=== PATIENT | male | born 1955 | race Two or more races ===

== ENCOUNTER 2024-12-03 17:54 | Inpatient (IN) | payer OTHER, MEDICAID ==
[~2024-12-03] VITALS: Ht 182.9 cm; Wt 102.0 kg
[~2024-12-03 17:54] MED LIST: ALBU108A5 INH; ASPI-325 PO; BACL10TA PO; DICL1GEL73 TOP; GABA-1250 PO; LEVO50TA7 PO; LORA-483 PO; OMEP-448 PO; SODI650T PO
--- NOTE | 2024-12-03 19:13 | ED.PDOC ---
Musculoskeletal HPI Comments LISA: R foot wound HPI: Poor Historian. 68-year-old male presents to emergency department for evaluation of right foot wound. Patient is diabetic. Patient is status post shaving of a callus proximally a week ago. Today he started developing some pain in the area where he received a shaving of his callus with tenderness to palpation and swelling and redness. Denies any discharge. Denies any other acute symptoms. Patient has history of multiple problems with this foot in the past. Past Medical History: Diabetes, hypertension, hyperlipidemia, neuropathy. Past Surgical History: Fused spine, gallbladder, right foot toe amputation. REVIEW OF SYSTEMS: CONSTITUTIONAL: Denies acute: fever, diaphoresis, chills, generalized weakness. HEAD: Denies acute: headache, photophobia Eyes: Denies acute: Double vision, vision loss, eye pain, eye discharge. EARS: Denies acute: tinnitus, hearing loss, ear discharge, ear pain, THROAT: Denies acute: sore throat, swelling, difficulty swallowing , pain with swallowing, change in voice. NECK: Denies acute: neck pain, neck swelling, stiff neck. HEART: Denies acute : chest pain, palpitations, LUNGS: Denies acute: SOB, wheezing, cough, hemoptysis ABDOMEN: Denies acute: abdominal pain, Nausea, Vomiting, diarrhea, melena , hematemesis, hematochezia SKIN: Denies acute: rash, , , itchiness. EXTREMITIES: Denies acute: calf pain, numbness, tingling, weakness, Denies acute: Low back pain. Neuro: Denies acute: focal neurological deficit, motor or sensory focal neurological deficit, tremors, seizure like activity, confusion, dizziness, change in mental status, loss of bowel or bladder function, cauda equina like symptoms. : Denies acute: dysuria, hematuria, flank pain, increase in urinary frequency. PSYCH: Denies acute: hallucination, suicidal ideation, homicidal ideation. PHYSICAL EXAM: General: ----mild----acute distress, awake and alert. Head: normocephalic, atraumatic. Neck: supple, trachea is midline, no swelling. Throat: Normal phonation. Eyes:, no erythema, no purulent discharge, no proptosis, no icterus. Heart: regular rate, regular rhythm, no significant murmur appreciated. Lungs: no apparent respiratory distress, Able to speak in full sentences. No wheezing, no rhonchi, no crackles. No stridors Clear to auscultation bilaterally. Abdomen: non tender to palpation, non distended, soft, no guarding, no rebound, + bowel sounds. Neuro: Awake, Alert, oriented to name, self, situation, follows commands GCS=15. Speech is normal. Skin: no petechia, no purpura, no cyanosis, non-pale, not jaundice. Lower extremities: --no - Pitting edema no deformity, , no calf TTP. Evaluation of the right foot area of complaint: Patient has a right foot lateral aspect wound that is tender to palpation. This is the area that they shaved off a callus proximally a week ago. Patient has some minimal erythema around it. Some generalized tenderness to palpation in the area. Makes eye contact. moves all four extremities. Face: no apparent facial droop. Ambulating in the ED independently. Pedal pulses are palpable. ED COURSE: Chief Complaint: Wound Check Time Seen by MD: 17:59 Reviewed Notes: Nurses Notes, Allergies Allergies: Coded Allergies: Atropine (Verified Allergy, Unknown, 12/03/24) Morphine (Verified Allergy, Unknown, 12/03/24) Home Meds Reported Medications Loratadine (CLARITIN TABLET) 10 Mg Tb, 1 TAB PO DAILY for 30 Days, #30 12/04/24 Levothyroxine Sodium (Levothyroxine Sodium) 50 Mcg Tab, 1 TAB PO DAILY for 90 Days, #90 12/04/24 Omeprazole (Omeprazole Dr) 40 Mg Cap, 1 CAP PO DAILY for 90 Days, #90 12/04/24 Albuterol Sulfate (Albuterol Sulfate Hfa) 108 Mcg/Act Aer, 2 PUFF INH Q4HR PRN for 33 Days, #17 12/04/24 Aspirin (Aspirin Low Dose) 81 Mg Tab, 1 TAB PO DAILY for 90 Days, #90 12/04/24 Sodium Bicarbonate (Sodium Bicarbonate) 650 Mg Tab, 2 PO BID for 30 Days, #120 12/04/24 Diclofenac Sodium (Topical) (Diclofenac Sodium) 1 % Gel, 2 GRAMS TOP QID for 25 Days, #200 12/04/24 Baclofen (Baclofen) 10 Mg Tab, 1 TAB PO Q12HR PRN for 30 Days, #60 12/04/24 Amlodipine Besylate (Amlodipine Besylate) 5 Mg Tab, 5 MG PO DAILY for 30 Days, MG 12/04/24 Atorvastatin Calcium (ATORVASTATIN CALCIUM) 20 Mg Tab, 1 TAB PO DAILY, #30 TAB 5 Refills 12/04/24 Lisinopril (Lisinopril) 5 Mg Tab, 5 MG PO DAILY for 30 Days, MG 12/04/24 Gabapentin (Gabapentin) 300 Mg Cap, 1 TAB PO TID for 30 Days, #90 12/04/24 Insulin Glargine (Lantus Solostar) 100 Unit/Ml Inj, 35 UNITS SC HS 12/04/24 Carvedilol (Carvedilol) 12.5 Mg Tab, 1 TAB PO BID 12/04/24 Hydrocodone-Acetaminophen (Hydrocodone/Acetaminophen 7.5-325 mg) 1 Tab Tab, 1 TAB PO Q8H 12/04/24 Folic Acid (Folic Acid) 1 Mg Tab, 1 MG PO DAILY for 30 Days, MG 12/04/24 Information Source: Patient Mode of Arrival: Ambulatory Location: Right Was a procedure done? Was a procedure done?: No Differential Diagnosis EXT Differential Diagnosis: Other (Ddx include but not limited to cellulitis, abscess, lymphadenitis, lymphangitis, trauma, DVT, venous insufficiency, trauma, r/o septic joint., r/o associated osteomylitis, flexor tensenovitis, deep tissue infection, neoplasm, necrotizing fascitits, hematoma, gout.) X-Ray, Labs, Meds, VS Vital Signs Date Time Temp Pulse Resp B/P (MAP) Pulse Ox O2 Delivery O2 Flow Rate FiO2 12/03/24 18:44 98.3 81 20 153/77 (102) 95 98.3 Lab Test 12/03/24 20:25 Range/Units White Blood Count 6.1 4.4-10.8 10^3/uL Red Blood Count 4.33 L 4.5-5.90 10^6/uL Hemoglobin 12.7 L 13.5-17.5 g/dL Hematocrit 38.2 L 41.0-53.0 % Mean Corpuscular Volume 88.1 80.0-100.0 fL Mean Corpuscular Hemoglobin 29.3 28.0-32.0 pg Mean Corpuscular Hemoglobin Concent 33.2 32.0-36.0 g/dL Red Cell Distribution Width 14.2 11.8-14.3 % Platelet Count 179 140-450 10^3/uL Mean Platelet Volume 7.7 6.9-10.8 fL Neutrophils (%) (Auto) 77.2 37.0-80.0 % Lymphocytes (%) (Auto) 12.6 10.0-50.0 % Monocytes (%) (Auto) 7.5 0.0-12.0 % Eosinophils (%) (Auto) 1.9 0.0-7.0 % Basophils (%) (Auto) 0.8 0.0-2.0 % Neutrophils # (Auto) 4.7 1.6-8.6 10 ^3/uL Lymphocytes # (Auto) 0.8 0.4-5.4 10 ^3/uL Monocytes # (Auto) 0.5 0-1.3 10 ^3/uL Eosinophils # (Auto) 0.1 0-0.8 10 ^3/uL Basophils # (Auto) 0 0-0.2 10 ^3/uL Nucleated Red Blood Cells 0.1 % Erythrocyte Sedimentation Rate 46 H 0-20 mm/hr Sodium Level 141 136-145 mmol/L Potassium Level 4.6 3.5-5.1 mmol/L Chloride Level 109 H 98-107 mmol/L Carbon Dioxide Level 23 20-31 mmol/L Anion Gap 9 5-15 Blood Urea Nitrogen 47 H 9-23 mg/dL Creatinine 2.38 H 0.700-1.30 mg/dL Glomerular Filtration Rate Calc 29 >90 mL/min BUN/Creatinine Ratio 19.7 10.0-20.0 Serum Glucose 147 H 74-106 mg/dL Lactic Acid Level 0.8 0.4-2.0 mmol/L Calcium Level 9.6 8.7-10.4 mg/dL Magnesium Level 1.7 1.6-2.6 mg/dL Total Bilirubin 0.5 0.2-1.0 mg/dL Direct Bilirubin 0.2 <0.3 mg/dL Aspartate Amino Transferase (AST) 19 13-40 U/L Alanine Aminotransferase (ALT) 21 7-40 U/L Alkaline Phosphatase 91 46-116 U/L C-Reactive Protein High Sensitivity 2.00 H <1.0 mg/dL Total Protein 7.7 5.7-8.2 g/dL Albumin 4.5 3.2-4.8 g/dL Thyroid Stimulating Hormone (TSH) 10.15 H 0.55-4.78 uIU/mL Parathyroid Hormone (Intact) 149.6 H 18.4-80.1 pg/mL Microbiology Date/Time Source Procedure Growth Status 12/03/24 20:25 Blood Blood Culture - Preliminary NO GROWTH AFTER 48 HOURS OF INCUBATION. Resulted 12/03/24 20:25 Blood Blood Culture - Preliminary NO GROWTH AFTER 48 HOURS OF INCUBATION. Resulted [facility] [id number] [address] Ph: [phone] DIAGNOSTIC IMAGING Diagnostic Imaging Report : [id number] Signed PATIENT: ZEFERINO GONZALEZ ACCT: [id number] UNIT: [id number] : 1955 LOC: ER ROOM / BED: / AGE / SEX: 68 / M ADM STATUS: REG ER SERVICE 18 ORDERING PHYSICIAN: CHANTEL CHILDRESS DO PROCEDURE(s): RFOOT - R FOOT 3 VIEW XRAY REASON: foot wound ORDER NUMBER(s): [id number], ACCESSION NUMBER(s): [id number] CLINICAL INDICATION: foot wound TECHNIQUE: 3 radiographic views of the right foot were obtained. Comparison: None FINDINGS/IMPRESSION: Amputation of the 1st through 3rd toes. Osteoporotic changes of the proximal phalanx of the 2nd toe distal portion of the 1st metatarsal can not exclude osteomyelitis. The visualized joint space is well maintained. The alignment is anatomical. There is no radiopaque foreign body. HS:Y ATED BY: ELLA STOKES Jr., DO DICTATED DATE/TIME: 12/03/241947 SIGNED BY: ELLA STOKES Jr., DO SIGNED DATE/TIME: 12/03/241947 CC: Time of 1ST Reevaluation: 20:24 (All labs are still pending) Reevaluation 1ST: Unchanged Patient Education/Counseling: Diagnosis, Treatment Family Education/Counseling: No Family Present Comments Patient presented with the above HPI.--foot wound evaluation----workup was initiated. patient was found with the above mentioned diagnosis. the following medications were ordered: please refer to order lists of meds and tests obtained by myself Dr. Childress. Patient ED course and VS have been stabilized. Patient has been reassessed in the ED and remained in a stable condition. Pertinent incidental findings were discussed with the patient and/or family. Patient/family voices understanding and is agreeable with plan. Patient has been observed in the ED adequate length of time to insure improv ement/stability. Escalation of care considered: Consideration of escalation to observation or admission Patient was admitted to the medicine team for further evaluation and treatment of his presentation. Antibiotics initiated. All the reports of any imaging studies that were ordered by myself were reviewed by myself. Departure 1 Departure Time of Disposition: 21:35 Impression: Primary Impression: Wound of foot Disposition: ADMITTED INPATIENT Admit to: Tele Condition: Guarded Discharged With: Self Critical Care Note Critical Care Time?: No I personally scribed for CHANTEL CHILDRESS DO ([email or web address]) on 12/04/24 at 20:06. Electronically submitted by Armando Mixon ([email or web address]). CHANTEL CHILDRESS DO Dec 03, 2024 19:13
--- NOTE | 2024-12-03 19:51 | DVH ---
CLINICAL INDICATION: foot wound TECHNIQUE: 3 radiographic views of the right foot were obtained. Comparison: None FINDINGS/IMPRESSION: Amputation of the 1st through 3rd toes. Osteoporotic changes of the proximal phalanx of the 2nd toe d istal portion of the 1st metatarsal can not exclude osteomyelitis. The visualized joint space is well maintained. The alignment is anatomical. There is no radiopaque foreign body. HS:Y
[2024-12-03] MEDS ORDERED: VANCOMYCIN 1GM/200ML PM 250 ML IV ONE (20:30)
[2024-12-03 20:45] LABS: Basophils # (auto) 0 10 ^3/uL (0-0.2); Basophils % (auto) 0.8 % (0.0-2.0); Eosinophils # (auto) 0.1 10 ^3/uL (0-0.8); Eosinophils % (auto) 1.9 % (0.0-7.0); Hematocrit 38.2 % (41.0-53.0); Hemoglobin 12.7 g/dL (13.5-17.5); Lymphocytes # (auto) 0.8 10 ^3/uL (0.4-5.4); Lymphocytes % (auto) 12.6 % (10.0-50.0); Mean Corpuscular Hemoglobin 29.3 pg (28.0-32.0); Mean Corpuscular Hgb Conc. 33.2 g/dL (32.0-36.0); Mean Corpuscular Volume 88.1 fL (80.0-100.0); Monocytes # (auto) 0.5 10 ^3/uL (0-1.3); Monocytes % (auto) 7.5 % (0.0-12.0); Neutrophils # (auto) 4.7 10 ^3/uL (1.6-8.6); Neutrophils % (auto) 77.2 % (37.0-80.0); Nucleated Red Blood Cells % 0.1 %; Platelet Count (auto) 179 10^3/uL (140-450); Red Blood Cells 4.33 10^6/uL (4.5-5.90); Red Cell Distribution Width 14.2 % (11.8-14.3); White Blood Cell 6.1 10^3/uL (4.4-10.8)
[2024-12-03 21:03] LABS: Alanine Aminotransferase 20 U/L (7-40); Albumin 4.5 g/dL (3.2-4.8); Alkaline Phosphatase 90 U/L (46-116); Anion Gap 9 (5-15); Aspartate Aminotransferase 19 U/L (13-40); BUN/Creatinine Ratio 19.7 (10.0-20.0); Bilirubin, Total 0.5 mg/dL (0.2-1.0); Calcium 9.6 mg/dL (8.7-10.4); Carbon Dioxide 23 mmol/L (20-31); Potassium 4.6 mmol/L (3.5-5.1); Sodium 141 mmol/L (136-145); Total Protein 7.7 g/dL (5.7-8.2)
[2024-12-03 21:06] LABS: Blood Urea Nitrogen 47 mg/dL (9-23); Chloride 109 mmol/L (98-107); Glucose 147 mg/dL (74-106)
[2024-12-03 21:33] LABS: Erythrocyte Sedimentation Rate 46 mm/hr (0-20)
--- NOTE | 2024-12-03 23:54 | DVHHPRES ---
History of Present Illness Resident Creating Document: SIMON ADAIR RESIDENT History of Present Illness Mr. Desir is 68-year-old male patient with past medical history of right big toe and 4th toe amputation, right 5th toe incision and drainage 2 years back, right foot osteomyelitis 2 years back, diabetes mellitus for the past 10 years on insulin Lantus 35 units daily, hypertension, kidney disease and history of back surgery presented to the ER with a chief complaint of pain and tenderness along with purulent discharge of the right 5th toe. Patient reports that he has a callus for the past year on the solar surface of the 5th left toe for which he was following [facility] and he got it shaved by electrician apprentice [employer] 1 week earlier following which he developed worsening swelling, erythema and subsequently purulent discharge for the past 1 day. Patient could not bear weight on his left feet. He denies fever, chills, shortness of breaths or abdo daniel complaints. On arrival to the ER, patient was vitally stable, ESR was elevated at 46, lactic acid 0.8, BUN 47 and creatinine 2.38. Foot x-ray was completed which showed osteoarthritic changes of the proximal phalanx of 2nd toe distal portion of the 1st metatarsal, can not exclude osteomyelitis. MRI of the right foot was ordered. Past medical/surgical history: See above Home medications: Coreg 3.25 b.i.d., aspirin 81, amlodipine 5 mg, Lantus 35 units, [place] PCP, Dr. Camp Patient seen and examined at the ER holding area. Ordered an MRI of the right foot. Started cefepime and doxy. Review of Systems Allergies: Coded Allergies: Atropine (Verified Allergy, Unknown, 12/03/24) Morphine (Verified Allergy, Unknown, 12/03/24) Exam Vital Signs Vital Signs Date Time Temp Pulse Resp B/P (MAP) Pulse Ox O2 Delivery O2 Flow Rate FiO2 12/03/24 18:44 98.3 81 20 153/77 (102) 95 98.3 Exam Patient sitting in a wheelchair comfortably, well conversational. General: Overweight, afebrile, palor, mucosae are moist Cardiovascular: Regular S1 and S2. No murmurs, gallops or rubs. No JVD elevation. Bilateral pitting edema 2+. Respiratory: Normal B/L air entry on room air. Clear lung sounds on auscultation Abdomen: Soft, nontender, nondistended, normoactive bowel sounds, no rebound tenderness, no organomegaly, no masses Genitourinary: Deferred MSK/skin: Mobilizes 4 limbs. Right feet dressing removed, shows callus on the lateral sole, not actively draining. Dorsum of the right foot has erythema, swelling, borders marked. Neurological: No motor, no sensitive deficits, normal speech. Pupils are isocoric and reactive. Psych/Mental Status: A/Ox4 Labs/Xrays Labs Test 12/03/24 20:25 Range/Units White Blood Count 6.1 4.4-10.8 10^3/uL Red Blood Count 4.33 L 4.5-5.90 10^6/uL Hemoglobin 12.7 L 13.5-17.5 g/dL Hematocrit 38.2 L 41.0-53.0 % Mean Corpuscular Volume 88.1 80.0-100.0 fL Mean Corpuscular Hemoglobin 29.3 28.0-32.0 pg Mean Corpuscular Hemoglobin Concent 33.2 32.0-36.0 g/dL Red Cell Distribution Width 14.2 11.8-14.3 % Platelet Count 179 140-450 10^3/uL Mean Platelet Volume 7.7 6.9-10.8 fL Neutrophils (%) (Auto) 77.2 37.0-80.0 % Lymphocytes (%) (Auto) 12.6 10.0-50.0 % Monocytes (%) (Auto) 7.5 0.0-12.0 % Eosinophils (%) (Auto) 1.9 0.0-7.0 % Basophils (%) (Auto) 0.8 0.0-2.0 % Neutrophils # (Auto) 4.7 1.6-8.6 10 ^3/uL Lymphocytes # (Auto) 0.8 0.4-5.4 10 ^3/uL Monocytes # (Auto) 0.5 0-1.3 10 ^3/uL Eosinophils # (Auto) 0.1 0-0.8 10 ^3/uL Basophils # (Auto) 0 0-0.2 10 ^3/uL Nucleated Red Blood Cells 0.1 % Erythrocyte Sedimentation Rate 46 H 0-20 mm/hr Sodium Level 141 136-145 mmol/L Potassium Level 4.6 3.5-5.1 mmol/L Chloride Level 109 H 98-107 mmol/L Carbon Dioxide Level 23 20-31 mmol/L Anion Gap 9 5-15 Blood Urea Nitrogen 47 H 9-23 mg/dL Creatinine 2.38 H 0.700-1.30 mg/dL Glomerular Filtration Rate Calc 29 >90 mL/min BUN/Creatinine Ratio 19.7 10.0-20.0 Serum Glucose 147 H 74-106 mg/dL Lactic Acid Level 0.8 0.4-2.0 mmol/L Calcium Level 9.6 8.7-10.4 mg/dL Total Bilirubin 0.5 0.2-1.0 mg/dL Aspartate Amino Transferase (AST) 19 13-40 U/L Alanine Aminotransferase (ALT) 20 7-40 U/L Alkaline Phosphatase 90 46-116 U/L Total Protein 7.7 5.7-8.2 g/dL Albumin 4.5 3.2-4.8 g/dL Assessment/Plan Assessment/Plan Probable right foot cellulitis, less likely osteomyelitis History of diabetes mellitus type 2-hemoglobin A1c pending on insulin ESR 46 Certified [employer]ention [employer], wound care consulted IV cefepime and IV doxy started 12/03 MRI left foot pending Lantus 15 units and mild ISS initiated DESTINEY likely superimposed on CKD, unknown baseline 1 L NS supplemented at 125cc/hour Urine studies pending Patient refused kidney ultrasound Patient recently had kidney ultrasound as outpatient, requested records from patient Hypertension Consider starting home medication Coreg 3.25 b.i.d. Continue home medication Amlodipine 5 mg daily Diabetic diet Lovenox 40 mg sc daily Plan discussed with patient in which all questions have been answered Goals of care discussed with patient, full code status Case discussed with Dr. Isidro Plan discussed with: Patient My Orders Orders - SIMON ADAIR Procedure Category Date Status Time Admit ADMIT 12/03/24 Verified 23:52 Date of Service: Dec 03, 2024 Billing Provider: CHRIS ISIDRO MD Common Visit Codes: 97941-[id number] INP/OBS CARE (HIGH) Secondary Visit Codes: 59654-[id number] CARE PLAN 30 MINUTES SIMON ADAIR Dec 03, 2024 23:54 CHRIS ISIDRO MD Dec 04, 2024 10:02
[2024-12-04] VITALS (10 sets, daily range): BP systolic 150–170; BP diastolic 65–88; PULSE 59–90; RESP 16–19; TEMP 97.4–98.6; O2SAT 96–99
[2024-12-04] MEDS ORDERED: MORPHINE SULFATE INJ 2 MG/ml SYRG IV PRN
[2024-12-04] MEDS: SODIUM CHLORIDE 0.9% 1,000 ML IV ONE
[2024-12-04] MEDS ORDERED: DEXTROSE (50%) 50ML SYRG IV PRN
[2024-12-04 01:20] LABS: Albumin 4.5 g/dL (3.2-4.8); Bilirubin, Total 0.5 mg/dL (0.2-1.0); Magnesium 1.7 mg/dL (1.6-2.6); Total Protein 7.7 g/dL (5.7-8.2)
[2024-12-04] MEDS: DOXYCYCLINE 100MG/100ML 100 ML IV SCH (02:07)
[2024-12-04] MEDS: HYDROcodone-ACET 5/325MG TAB PO PRN (02:30)
[2024-12-04] MEDS: CEFEPIME 2GM/50ML NS 50 ML IV SCH (04:06)
[2024-12-04] MEDS: ACCU-CHEK COMFORT CURVE STRIP VI SCH (06:39)
[2024-12-04] MEDS: InsuLIN REG 1unit/0.01ml Soln (100units/ml) SC SCH (06:42)
[2024-12-04 07:00] LABS: Basophils # (auto) 0 10 ^3/uL (0-0.2); Basophils % (auto) 0.7 % (0.0-2.0); Eosinophils # (auto) 0.1 10 ^3/uL (0-0.8); Eosinophils % (auto) 2.5 % (0.0-7.0); Hematocrit 34.5 % (41.0-53.0); Hemoglobin 11.9 g/dL (13.5-17.5); Lymphocytes # (auto) 0.9 10 ^3/uL (0.4-5.4); Lymphocytes % (auto) 19.1 % (10.0-50.0); Mean Corpuscular Hemoglobin 30.6 pg (28.0-32.0); Mean Corpuscular Hgb Conc. 34.5 g/dL (32.0-36.0); Mean Corpuscular Volume 88.7 fL (80.0-100.0); Monocytes # (auto) 0.4 10 ^3/uL (0-1.3); Monocytes % (auto) 9.2 % (0.0-12.0); Neutrophils # (auto) 3.2 10 ^3/uL (1.6-8.6); Neutrophils % (auto) 68.5 % (37.0-80.0); Platelet Count (auto) 139 10^3/uL (140-450); Red Blood Cells 3.89 10^6/uL (4.5-5.90); Red Cell Distribution Width 14.2 % (11.8-14.3); White Blood Cell 4.6 10^3/uL (4.4-10.8)
[2024-12-04 07:15] LABS: Free T4 (Free Thyroxine) 0.84 ng/dL (0.89-1.76); T3 Total 0.93 ng/mL (0.60-1.81)
[2024-12-04 07:23] LABS: Alanine Aminotransferase 15 U/L (7-40); Alkaline Phosphatase 76 U/L (46-116); Anion Gap 8 (5-15); Aspartate Aminotransferase 14 U/L (13-40); BUN/Creatinine Ratio 20.9 (10.0-20.0); Calcium 9.2 mg/dL (8.7-10.4); Carbon Dioxide 21 mmol/L (20-31); Potassium 4.2 mmol/L (3.5-5.1); Sodium 138 mmol/L (136-145); Total Protein 7.2 g/dL (5.7-8.2)
[2024-12-04 07:24] LABS: Bilirubin, Total 0.4 mg/dL (0.2-1.0); Blood Urea Nitrogen 49 mg/dL (9-23); Chloride 109 mmol/L (98-107); Glucose 259 mg/dL (74-106)
[2024-12-04] MEDS ORDERED: FOLI-119 PO (07:28)
[2024-12-04] MEDS ORDERED: ATOR20TA50 PO (07:35)
[2024-12-04] MEDS ORDERED: LISI-275 PO (07:35)
[2024-12-04] MEDS ORDERED: INSUINJ37 SC (07:35)
[2024-12-04] MEDS ORDERED: HYDR-4069 PO (07:35)
[2024-12-04] MEDS ORDERED: AMLO1TAB22 PO ×2 (07:35→07:38)
[2024-12-04] MEDS ORDERED: CARV12.544 PO (07:35)
--- NOTE | 2024-12-04 09:07 | DVHPNRES ---
Progress Note Date Seen: Dec 04, 2024 Resident Creating Document: BING DOUGLAS RESIDENT Has the PT tested + for MRSA If YES, has PT been informed?: No Medical Necessity Reason Pt with a Central, PICC or Fol: No Subjective Review of Systems This is a 68-year-old male with past medical history of hypertension, chronic kidney disease, diabetes mellitus for the past 10 years using 35 units of Lantus daily, history of right big toe and 4th toe amputation, right 5th toe incision and drainage two years ago, right foot osteomyelitis two years ago and history of back surgery who presented to the ED with chief complaint of right 5th digit wound and tenderness. Patient states that he has being having a callus below the level of the 5th digit of the right foot since he is putting more bear weight on that side of the foot due to previous amputations. Patient states that he used to get shaved the callus by a shield cleaner before but recently move to this area and had a new shield cleaner which is the one that he is taking care of the callus now. He states that he thinks the shield cleaner shaved too much the callus the last time and caused an open wound we severe tenderness. Upon my examination, there is no open wound at this time. There is mild collection of minimal fluid at the level of the callus with slight erythema surrounding the callus. Foot x-ray was ordered showing amputation of the 1st and 4th toes of the right foot with osteoporotic changes in the proximal phalanx of the 2nd toe distal portion of the 1st metatarsal. Osteomyelitis could not be excluded reason why we ordered an MRI of the foot which is still pending. Patient denied fever/chills, chest pain, shortness of breath or any other complaints at this time. We will admit the patient for further assessment and management of cellulitis and rule out osteomyelitis. Patient seen and examined at bedside. Patient is alert and oriented in person, place and time. Patient complains of severe tenderness in the surface aspect of the 5th right toe of the right foot. The patient has an old callus with a small close it wound, no purulent drainage but there is a mild fluid collection and slight erythema surrounding the closed wound. We are still pending for MRI of the right foot to rule out osteomyelitis, we consulted shield cleaner for further assessment and management. Otherwise patient is feeling well overall. We started the patient on IV cefepime and doxycycline. We hold vancomycin due to kidney function. ROS Constitutional: Denies weight loss, fever and chills. HEENT: Denies changes in vision and hearing. Respiratory: Denies shortness of breath and cough Cardiovascular: Denies chest discomfort or palpitations GI: Denies abdominal pain, nausea, vomiting and diarrhea. : Denies dysuria and urinary frequency. Musculoskeletal: Reports right 5th digit cellulitis in the plantar aspect below the 5th digit. Denies myalgias and joint pain Skin: Denies rash and pruritus. Neurological: Denies dizziness, headache, vision or hearing problems Objective vital signs Vital Sign Date Time Temp Pulse Resp B/P (MAP) Pulse Ox O2 Delivery O2 Flow Rate FiO2 12/04/24 05:54 98.5 73 19 154/73 (100) 98.5 12/04/24 05:27 96 Room Air* 0 21 medications Current Medications Medications Dose Ordered Sig/Reza Route Start Time Stop Time Status Last Admin Dose Admin Cefepime HCl 50 ml @ 12.5 mls/hr DAILY@2200 IV 12/04/24 00:00 12/04/24 04:06 12.5 MLS/HR Acetaminophen 500 mg Q4HPRN PRN PO 12/04/24 00:00 Acetaminophen/ Hydrocodone Bitart 1 tab Q4HPRN PRN PO 12/04/24 00:00 12/04/24 06:47 1 TAB Morphine Sulfate 1 mg Q2HPRN PRN IV 12/04/24 00:00 Hold Doxycycline Hyclate 100 ml @ 50 mls/hr Q12H IV 12/04/24 01:00 12/04/24 02:07 50 MLS/HR Diagnostic Test (Pha) 1 strip ACHS 12/04/24 07:00 12/04/24 06:39 1 STRIP Insulin Human Regular ACHS SC 12/04/24 07:00 12/04/24 06:42 6 UNITS Dextrose 50 ml UD PRN IV 12/04/24 00:00 Insulin Glargine 15 units DAILY@1000 SC 12/04/24 10:00 Amlodipine Besylate 5 mg DAILY PO 12/04/24 10:00 Enoxaparin Sodium 40 mg DAILY SC 12/04/24 10:00 Carvedilol 3.125 mg Q12HR PO 12/04/24 10:00 Levothyroxine Sodium 50 mcg QAM@0600 PO 12/05/24 06:00 UNV Examination Physical Examination General: Patient alert and oriented in person, place and time. Patient following commands. HEENT: Normocephalic, atraumatic, moist mucous membranes Respiratory/pulmonary: Clear lungs bilaterally, vesicular murmurs present in almost all lung boyle, no associated crackles or wheezes. Cardiovascular: Normal heart sounds S1 and S2 with no associated murmurs Abdomen: Abdomen nondistended, there is no pain to palpation in any of the abdominal quadrants, no palpable masses. Extremities: There is a closed wound in the surface aspect of the right foot below the 5th digit consistent with a closed wound, no purulent drainage, there is mild collection of fluid at the level of the closed wound with slight erythema surrounding the callus. Patient also has amputation of the right big toe and 4th digit of the right foot. There is no peripheral edema present at the lower extremities. Peripheral Pulses: 3+ Radial (R). 3+ Radial (L). 3+ Dorsalis pedis (R). 3+ Dorsalis pedis(L) Skin: No rashes or pruritus, there is no sacral edema present at this time. Neurological: Intact cranial nerves with no focal neurologic deficits laboratory and microbiology Laboratory Tests 12/04/24 06:00 Test 12/04/24 06:00 Range/Units Serum Glucose 259 #H 74-106 mg/dL Problem List/Assessment/Plan Problem List/Assessment/Plan Assessment/Plan Acute right foot pain due to cellulitis of the 5th digit of the right foot, R/O osteomyelitis -there is a closed wound in the sole face of the right foot below the 5th digit consistent with a callus, there is no drainage from the wound but there is a small fluid collection at the level of the callus surrounded by slight erythema. -right foot x-ray showed amputation of the 1st and 4th toes with osteoporotic changes of the proximal phalanx of the 2nd toe and distal portion of the 1st metatarsal. Osteo not excluded -Ordered MRI of the foot to Rule out osteomyelitis -Consulted shield cleaner -start IV cefepime -start IV doxycycline, no vancomycin due to kidney function. -wound care and wound dressing daily -maintain blood sugars between 140-180 Uncontrolled Diabetes mellitus type 2 insulin-dependent -Ordered hemoglobin A1c -increased Lantus from 15 to 20 units q.a.m. -continue mild sliding scale insulin -Diabetic diet -Monitor BG, Goal 140-180 DESTINEY on CKD likely due to vasomotor nephropathy -creatinine was 3.34 and BUN 49 -IV fluids 125cc/hr -monitor kidney function closely Primary hypertension -start carvedilol 3.125 b.i.d. -Start amlodipine 5mg daily -Monitor BP Hypothyroidism -TSH was 10.15 -free T4 0.84 -start levothyroxine 50 mcg q.a.m. DVT prophylaxys 40mg sc Goals of care discussed with the patient for > 25min, FULL CODE Plan discussed with Dr. Lobato Plan discussed with: Patient My Orders My Orders Orders - BING DOUGLAS Procedure Category Date Status Time Carvedilol Tablet PHA 12/04/24 In Process (Coreg Tablet) 10:00 Levothyroxine Tablet PHA 12/05/24 Logged (Synthroid Tablet) 06:00 Date of Service: Dec 04, 2024 Billing Provider: CHRIS LOBATO MD Common Visit Codes: [id number] INP/OBS CARE(HIGH) Secondary Visit Codes: [id number] CARE PLAN 30 MINUTES BING DOUGLAS Dec 04, 2024 09:07 CHRIS LOBATO MD Dec 04, 2024 10:08
[2024-12-04] MEDS: INSULIN LANTUS (GLARGINE) 1 /0.01ml (100units/ml) SC SCH (10:00)
[2024-12-04] MEDS ORDERED: INSULIN LANTUS (GLARGINE) 1 /0.01ml (100units/ml) SC SCH (10:00)
[2024-12-04] MEDS: amLODIPine BESYLATE 5 MG TAB PO SCH (10:16)
[2024-12-04] MEDS: CARVEDILOL 3.125 MG TAB PO SCH (10:16)
[2024-12-04] MEDS: ENOXAPARIN SOD 40 MG/0.4 ML SYRINGE SC SCH (10:17)
--- NOTE | 2024-12-04 10:36 | DVH ---
EXAM: MRI MRI R FOOT WO CONTRAST; DATE: 12/04/2024 08:51 AM HISTORY: r/o osteomyelitis COMPARISON: Radiograph dated 12/03/2024 TECHNIQUE: Multiplanar, multisequence MRI was performed. FINDINGS: Suboptimal motion degraded study. Great toe amputation level of the MTP joint. 3rd ray amputation at the level of with the metatarsal shaft. No bone marrow edema or cortical erosion noted. Dorsal subcut aneous edema. Soft tissue swelling/blistering over the 5th toe is seen measuring up to 0.8 cm in thic kness. 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 Lisfranc joint and ligament are intact. The flexor and ex tensor tendons are unremarkable. Visualized plantar fascia is unremarkable. Moderate plantar musculat ure fatty atrophy. IMPRESSION: 1. No evidence of osteomyelitis. Soft tissue blistering/ fluid accumulation on the lateral aspect of the 5th toe without underlying cortical erosion or bone marrow edema.
--- NOTE | 2024-12-04 10:56 | DVHINCON2 ---
Date Seen: Dec 04, 2024 Reason for Consultation Right foot wound History of Present Illness Mr. Desir is 68-year-old male patient with past medical history of right big toe and 4th toe amputation, right 5th toe incision and drainage 2 years back, right foot osteomyelitis 2 years back, diabetes mellitus for the past 10 years on insulin Lantus 35 units daily, hypertension, kidney disease and history of back surgery presented to the ER with a chief complaint of pain and tenderness along with purulent discharge of the right 5th toe. Patient reports that he has a callus for the past year on the solar surface of the 5th left toe for which he was following [facility] and he got it shaved by power generation technician Nestor 1 week earlier following which he developed worsening swelling, erythema and subsequently purulent discharge for the past 1 day. Patient could not bear weight on his left feet. He denies fever, chills, shortness of breaths or abd ominal complaints. On arrival to the ER, patient was vitally stable, ESR was elevated at 46, lactic acid 0.8, BUN 47 and creatinine 2.38. Foot x-ray was completed which showed osteoarthritic changes of the proximal phalanx of 2nd toe distal portion of the 1st metatarsal, can not exclude osteomyelitis. MRI of the right foot was ordered. Past Medical History See H&P Past Surgical History See H&P Family History: Diabetes mellitus G8 MOTHER FH: kidney cancer G8 FATHER Allergies: Coded Allergies: Atropine (Verified Allergy, Unknown, 12/03/24) Morphine (Verified Allergy, Unknown, 12/03/24) Home Meds Reported Medications Amlodipine Besylate (Amlodipine Besylate) 5 Mg Tab, 5 MG PO DAILY for 30 Days, MG 12/04/24 Atorvastatin Calcium (ATORVASTATIN CALCIUM) 20 Mg Tab, 1 TAB PO DAILY, #30 TAB 5 Refills 12/04/24 Lisinopril (Lisinopril) 5 Mg Tab, 5 MG PO DAILY for 30 Days, MG 12/04/24 Gabapentin (Gabapentin) 300 Mg Cap, 300 MG PO HS 12/04/24 Insulin Glargine (Lantus Solostar) 100 Unit/Ml Inj, 35 UNITS SC HS 12/04/24 Carvedilol (Carvedilol) 12.5 Mg Tab, 1 TAB PO BID 12/04/24 Hydrocodone-Acetaminophen (Hydrocodone/Acetaminophen 7.5-325 mg) 1 Tab Tab, 1 TAB PO Q8H 12/04/24 Folic Acid (Folic Acid) 1 Mg Tab, 1 MG PO DAILY for 30 Days, MG 12/04/24 Current Medications Current Medications Medications (Trade) Dose Ordered Sig/Reza Route PRN Reason Start Time Stop Time Status Last Admin Cefepime HCl 50 ml @ 12.5 mls/hr DAILY@2200 IV 12/04/24 00:00 12/04/24 04:06 Acetaminophen (Tylenol Tablet Or Capsule) 500 mg Q4HPRN PRN PO MILD PAIN (1-3 PAIN SCALE) 12/04/24 00:00 Acetaminophen/ Hydrocodone Bitart ([place] 5/325MG Tab) 1 tab Q4HPRN PRN PO MODERATE PAIN (4-6 PAIN SCALE) 12/04/24 00:00 12/04/24 06:47 Morphine Sulfate 1 mg Q2HPRN PRN IV SEVERE PAIN (7-10 PAIN SCALE) 12/04/24 00:00 Hold Doxycycline Hyclate 100 ml @ 50 mls/hr Q12H IV 12/04/24 01:00 12/04/24 02:07 Diagnostic Test (Pha) (Accu-Chek Comfort Curve T) 1 strip ACHS 12/04/24 07:00 12/04/24 06:39 Insulin Human Regular (InsuLIN R) ACHS SC 12/04/24 07:00 12/04/24 06:42 Dextrose 50 ml UD PRN IV Blood Sugar LESS THAN 60 12/04/24 00:00 Insulin Glargine (Lantus) 15 units DAILY@1000 SC 12/04/24 10:00 12/04/24 09:01 DC Amlodipine Besylate (Norvasc Tablet) 5 mg DAILY PO 12/04/24 10:00 12/04/24 10:16 Enoxaparin Sodium (Lovenox) 40 mg DAILY SC 12/04/24 10:00 12/04/24 10:17 Carvedilol (Coreg Tablet) 3.125 mg Q12HR PO 12/04/24 10:00 12/04/24 10:16 Levothyroxine Sodium (Synthroid Tablet) 50 mcg QAM@0600 PO 12/05/24 06:00 Insulin Glargine (Lantus) 20 units DAILY@1000 SC 12/04/24 09:00 12/04/24 10:19 Vital Signs Vital Signs Date Time Temp Pulse Resp B/P (MAP) Pulse Ox O2 Delivery O2 Flow Rate FiO2 12/04/24 10:16 65 155/88 12/04/24 09:00 97.7 17 99 97.7 12/04/24 05:27 Room Air* 0 21 Physical Exam DERMATOLOGIC EXAM: - Skin is dry and cool to the touch dry bilaterally. - Nails 1-5 of the bilateral foot are thickened, discolored, dystrophic, and tender to palpate with subungual debris - Hair loss noted to bilateral feet - wound on the right lateral foot with a pocket purulence with localized cellulitis and drainage VASCULAR EXAM: - DP and PT pulses are palpable bilaterally. - AIRCRAFT MAINTENANCE ENGINEER is brisk to all digits. - Feet are cool to touch compared to lower legs bilaterally. NEUROLOGIC EXAM: - Normal light touch sensation to the superficial peroneal, deep peroneal, sural, saphenous, and tibial nerve branches. - Protective sensation is diminished as tested with a 5.07 10g [place]-Elvi bilaterally. MUSCULOSKELETAL EXAM: - No gross deformities - Muscle strength is 5/5 and active motion is pain-free and symmetrical bilaterally - No pain or crepitation with passive range of motion bilaterally to all major pedal joints Labs/Diagnostic Data Labs Test 12/04/24 10:12 12/04/24 06:00 12/03/24 20:25 Range/Units POC Glucose 117 H 70-106 mg/dl White Blood Count 4.6 4.4-10.8 10^3/uL Red Blood Count 3.89 L 4.5-5.90 10^6/uL Hemoglobin 11.9 L 13.5-17.5 g/dL Hematocrit 34.5 L 41.0-53.0 % Mean Corpuscular Volume 88.7 80.0-100.0 fL Mean Corpuscular Hemoglobin 30.6 28.0-32.0 pg Mean Corpuscular Hemoglobin Concent 34.5 32.0-36.0 g/dL Red Cell Distribution Width 14.2 11.8-14.3 % Platelet Count 139 L 140-450 10^3/uL Mean Platelet Volume 7.8 6.9-10.8 fL Neutrophils (%) (Auto) 68.5 37.0-80.0 % Lymphocytes (%) (Auto) 19.1 10.0-50.0 % Monocytes (%) (Auto) 9.2 0.0-12.0 % Eosinophils (%) (Auto) 2.5 0.0-7.0 % Basophils (%) (Auto) 0.7 0.0-2.0 % Neutrophils # (Auto) 3.2 1.6-8.6 10 ^3/uL Lymphocytes # (Auto) 0.9 0.4-5.4 10 ^3/uL Monocytes # (Auto) 0.4 0-1.3 10 ^3/uL Eosinophils # (Auto) 0.1 0-0.8 10 ^3/uL Basophils # (Auto) 0 0-0.2 10 ^3/uL Nucleated Red Blood Cells 0.0 % Sodium Level 138 136-145 mmol/L Potassium Level 4.2 3.5-5.1 mmol/L Chloride Level 109 H 98-107 mmol/L Carbon Dioxide Level 21 20-31 mmol/L Anion Gap 8 5-15 Blood Urea Nitrogen 49 H 9-23 mg/dL Creatinine 2.34 H 0.700-1.30 mg/dL Glomerular Filtration Rate Calc 30 >90 mL/min BUN/Creatinine Ratio 20.9 H 10.0-20.0 Serum Glucose 259 #H 74-106 mg/dL Hemoglobin A1c 7.9 H <5.7 % A1C Calcium Level 9.2 8.7-10.4 mg/dL Total Bilirubin 0.4 0.2-1.0 mg/dL Aspartate Amino Transferase (AST) 14 13-40 U/L Alanine Aminotransferase (ALT) 15 7-40 U/L Alkaline Phosphatase 76 46-116 U/L Total Protein 7.2 5.7-8.2 g/dL Albumin 4.0 3.2-4.8 g/dL Free Thyroxine (T4) Calculated 0.84 L 0.89-1.76 ng/dL Total Triiodothyronine (TT3) 0.93 0.60-1.81 ng/mL Erythrocyte Sedimentation Rate 46 H 0-20 mm/hr Lactic Acid Level 0.8 0.4-2.0 mmol/L Magnesium Level 1.7 1.6-2.6 mg/dL Thyroid Stimulating Hormone (TSH) 10.15 H 0.55-4.78 uIU/mL Parathyroid Hormone (Intact) 149.6 H 18.4-80.1 pg/mL Problems(with codes): (1) Abscess of foot (2) Cellulitis of foot (3) Osteomyelitis of foot (4) Diabetic foot ulcer (5) Type 2 diabetes mellitus with diabetic neuropathy (6) Wound of foot Plan/Recommendation ASSESSMENT: Patient is a 68 year old seen on the floor for a worsening ulcer PLAN: - The patients chart was reviewed, clinical findings were discussed with the patient, the etiologies of the conditions were discussed in detail, and a treatment plan was agreed to at this time, with both oral and written instructions provided. - reviewed advanced imaging - discussed plan is to perform an incision and drainage - patient will be NPO at midnight - take him to the OR tomorrow - we will get cultures in the OR - can weightbear as tolerated in postoperative shoe All questions were answered and concerns addressed to the patient's satisfaction. The patient was given the phone number to the clinic and was told how to make contact with the clinic should any concerns or questions arise. Patient understands that if any questions or concerns arise prior to the next appointment, we should be contacted immediately. FOLLOW-UP: Continue to follow while inpatient Plan discussed with: Patient Date of Service: Dec 04, 2024 Billing Provider: RADHA ROMANO DPM Common Visit Codes: CONSULT ONLY Consultation Codes: [id number] CONSULT <80MIN RADHA ROMANO DPM Dec 04, 2024 10:56
[2024-12-04 16:00] LABS: Urine Bacteria None Seen /hpf (None Seen)
[2024-12-04 16:12] LABS: Urine Blood Negative /uL (Negative); Urine Clarity Clear (Clear); Urine Color Light-Yellow (Yellow); Urine Protein, UAD 1+ (Negative); Urine Specific Gravity 1.016 (1.001-1.035); Urine Squamous Epithelial Cell None Seen /hpf (<5); Urine Urobilinogen Normal (Negative); Urine WBC 1 /HPF (0-3); Urine pH 5.5 (5.0-9.0)
[2024-12-04 16:19] LABS: Protein, Urine 63.2 mg/dL (1-14)
[2024-12-04 16:22] LABS: Creatinine, Urine 83.92 mg/dL (30.0-125.0); Urine Protein/Creatinine Ratio 0.75
[2024-12-04 16:25] LABS: Opiate Scree,Urine Neg (NEGATIVE)
[2024-12-04 16:30] LABS: Bilirubin, Direct 0.2 mg/dL (<0.3)
[2024-12-04 16:30] LABS: Amphetamine Screen, Urine Neg (NEGATIVE); Barbiturate Scree,Urine Neg (NEGATIVE); Benzodiazephine Screen, Urine Neg (NEGATIVE); Cannabinoid Screen, Urine Neg (NEGATIVE); Cocaine Screen, Urine Neg (NEGATIVE); Phencyclidine Screen, Urine Neg (NEGATIVE)
[2024-12-04] MEDS: HYDROcodone-ACET 7.5/325MG TAB PO ONE (23:22)
[2024-12-05] VITALS (12 sets, daily range): BP systolic 138–206; BP diastolic 67–98; PULSE 61–88; RESP 13–32; TEMP 97.3–97.9; O2SAT 93–98
[2024-12-05] MEDS: diphenhdrAMINE HCL 50 MG/1 ML VL ONE (00:35)
[2024-12-05] MEDS: methylPREDNISolone SOD SUCC 125 MG/2 ML VL ONE (00:41)
[2024-12-05] MEDS: hydrALAZINE HCL 20 MG/ML VL ONE (00:44)
[2024-12-05] MEDS: diphenhdrAMINE HCL 50 MG/1 ML VL IV ONE (00:48)
[2024-12-05] MEDS: hydrALAZINE HCL 20 MG/ML VL IV PRN (00:53)
[2024-12-05] MEDS: methylPREDNISolone SOD SUCC 40 MG/ML VL IV ONE (00:56)
[2024-12-05] MEDS: ACETAMINOPHEN 500 MG TAB or CAP PO PRN (01:34)
[2024-12-05 01:38] LABS: Basophils # (auto) 0.1 10 ^3/uL (0-0.2); Basophils % (auto) 1.2 % (0.0-2.0); Eosinophils # (auto) 0.2 10 ^3/uL (0-0.8); Hematocrit 37.7 % (41.0-53.0); Hemoglobin 12.9 g/dL (13.5-17.5); Lymphocytes # (auto) 1.3 10 ^3/uL (0.4-5.4); Lymphocytes % (auto) 24.1 % (10.0-50.0); Mean Corpuscular Hemoglobin 29.7 pg (28.0-32.0); Mean Corpuscular Hgb Conc. 34.2 g/dL (32.0-36.0); Monocytes # (auto) 0.5 10 ^3/uL (0-1.3); Monocytes % (auto) 9.8 % (0.0-12.0); Neutrophils # (auto) 3.5 10 ^3/uL (1.6-8.6); Neutrophils % (auto) 61.9 % (37.0-80.0); Platelet Count (auto) 161 10^3/uL (140-450); Red Blood Cells 4.34 10^6/uL (4.5-5.90); Red Cell Distribution Width 14.2 % (11.8-14.3); White Blood Cell 5.6 10^3/uL (4.4-10.8)
[2024-12-05 01:40] LABS: Potassium 4.7 mmol/L (3.5-5.1); Sodium 137 mmol/L (136-145)
[2024-12-05 01:41] LABS: Anion Gap 7 (5-15)
[2024-12-05 01:42] LABS: Calcium 9.6 mg/dL (8.7-10.4)
[2024-12-05 01:43] LABS: Carbon Dioxide 20 mmol/L (20-31); Chloride 110 mmol/L (98-107)
[2024-12-05 01:47] LABS: BUN/Creatinine Ratio 24.2 (10.0-20.0); Blood Urea Nitrogen 48 mg/dL (9-23); Glucose 103 mg/dL (74-106); Magnesium 1.6 mg/dL (1.6-2.6)
[2024-12-05] MEDS: LEVOTHYROXINE SODIUM 50 MCG TAB PO SCH (06:12)
[2024-12-05 07:03] LABS: Basophils # (auto) 0 10 ^3/uL (0-0.2); Basophils % (auto) 0.8 % (0.0-2.0); Eosinophils # (auto) 0 10 ^3/uL (0-0.8); Eosinophils % (auto) 0.5 % (0.0-7.0); Hematocrit 35.8 % (41.0-53.0); Hemoglobin 12.3 g/dL (13.5-17.5); Lymphocytes # (auto) 0.3 10 ^3/uL (0.4-5.4); Lymphocytes % (auto) 5.5 % (10.0-50.0); Mean Corpuscular Hemoglobin 30.4 pg (28.0-32.0); Mean Corpuscular Hgb Conc. 34.4 g/dL (32.0-36.0); Mean Corpuscular Volume 88.3 fL (80.0-100.0); Monocytes # (auto) 0.1 10 ^3/uL (0-1.3); Monocytes % (auto) 1.9 % (0.0-12.0); Neutrophils # (auto) 4.7 10 ^3/uL (1.6-8.6); Neutrophils % (auto) 91.3 % (37.0-80.0); Platelet Count (auto) 147 10^3/uL (140-450); Red Blood Cells 4.05 10^6/uL (4.5-5.90); Red Cell Distribution Width 14.3 % (11.8-14.3); White Blood Cell 5.2 10^3/uL (4.4-10.8)
[2024-12-05 07:15] LABS: Anion Gap 8 (5-15); Calcium 9.5 mg/dL (8.7-10.4); Sodium 136 mmol/L (136-145)
[2024-12-05 07:18] LABS: Chloride 109 mmol/L (98-107); Potassium 5.1 mmol/L (3.5-5.1)
[2024-12-05 07:21] LABS: BUN/Creatinine Ratio 25.1 (10.0-20.0)
[2024-12-05 07:36] LABS: Blood Urea Nitrogen 49 mg/dL (9-23); Carbon Dioxide 19 mmol/L (20-31); Glucose 182 mg/dL (74-106)
--- NOTE | 2024-12-05 08:13 | ECG ---
[facility], [place] Test Date: 2024-12-05 Test Time: 00:41:50 Pat Name: ZEFERINO GONZALEZ Department: Respiratoy Room: 0217 A Gender: M Air Analysis Technician: : 1955 Requested By: JUAN WALDROP Order Number: [id number] Reading MD: Sly Davila Measurements Intervals [place] Rate: 70 P: 35 IL: 258 QRS: -27 QRSD: 167 T: 18 QT: 439 QTc: 474 Interpretive Statements Sinus rhythm Prolonged IL interval Probable left atrial enlargement Right bundle branch block Left ventricular hypertrophy Baseline wander in lead(s) I,II,aVR,V1,V3,V6 Electronically Signed On 12-10-2024 20:29:27 PDT by Sly Davila Please click the below link to view image of tracing.
[2024-12-05 08:18] LABS: INR 1.07 (0.9-1.15); Partial Thromboplastin Time 28.6 SEC (24.5-34.5); Prothrombin Time 11.3 sec (9.3-11.8)
[2024-12-05] MEDS: amLODIPine BESYLATE 5 MG TAB PO SCH (09:03)
--- NOTE | 2024-12-05 09:16 | DVH ---
EXAM: XY CHEST XRAY 1 VIEW Indication: SOB Technique: Single frontal view of the chest was obtained Comparison: None FINDINGS: Lines and Tubes: None Lungs: No focal consolidation. Pleura: No effusion. No pneumothorax. Cardiomediastinal contours: Unremarkable Bones: No acute osseous abnormality. IMPRESSION: No acute cardiopulmonary disease.
[2024-12-05] MEDS: BUPIVACAINE 0.5% MPF INJ 30ML SDV IJ ONE (10:14)
--- NOTE | 2024-12-05 12:25 | DVHPN2 ---
Subjective Mr. Desir is 68-year-old male patient with past medical history of right big toe and 4th toe amputation, right 5th toe incision and drainage 2 years back, right foot osteomyelitis 2 years back, diabetes mellitus for the past 10 years on insulin Lantus 35 units daily, hypertension, kidney disease and history of back surgery presented to the ER with a chief complaint of pain and tenderness along with purulent discharge of the right 5th toe. Patient reports that he has a callus for the past year on the solar surface of the 5th left toe for which he was following [facility] and he got it shaved by slat basket maker machine Nestor 1 week earlier following which he developed worsening swelling, erythema and subsequently purulent discharge for the past 1 day. Patient could not bear weight on his left feet. He denies fever, chills, shortness of breaths or abdominal complaints. On arrival to the ER, patient was vitally stable, ESR was elevated at 46, lactic acid 0.8, BUN 47 and creatinine 2.38. Foot x-ray was completed which showed osteoarthritic changes of the proximal phalanx of 2nd toe distal portion of the 1st metatarsal, can not exclude osteomyelitis. MRI of the right foot was ordered. Changes from previous H/P or p: No Changes Objective Vitals Vital Signs Date Time Temp Pulse Resp B/P (MAP) Pulse Ox O2 Delivery O2 Flow Rate FiO2 12/05/24 11:36 82 144/75 12/05/24 09:00 97.9 18 97 97.9 12/04/24 21:48 Room Air* 0 21 Intake/Output Intake and Output 12/05/24 07:00 Intake Total 100 ml Output Total 600 ml Balance -500 ml Intake IV Total 100 ml Output Urine Total 600 ml # Voids 2 Exam DERMATOLOGIC EXAM: - Skin is dry and cool to the touch dry bilaterally. - Nails 1-5 of the bilateral foot are thickened, discolored, dystrophic, and tender to palpate with subungual debris - Hair loss noted to bilateral feet - wound on the right lateral foot with a pocket purulence with localized cellulitis and drainage VASCULAR EXAM: - DP and PT pulses are palpable bilaterally. - BALL POINT SPLITTER is brisk to all digits. - Feet are cool to touch compared to lower legs bilaterally. NEUROLOGIC EXAM: - Normal light touch sensation to the superficial peroneal, deep peroneal, sural, saphenous, and tibial nerve branches. - Protective sensation is diminished as tested with a 5.07 10g [place]-Elvi bilaterally. MUSCULOSKELETAL EXAM: - No gross deformities - Muscle strength is 5/5 and active motion is pain-free and symmetrical bilaterally - No pain or crepitation with passive range of motion bilaterally to all major pedal joints Medications Current Medications Medications Dose Ordered Sig/Reza Route Start Time Stop Time Status Last Admin Dose Admin Cefepime HCl 50 ml @ 12.5 mls/hr DAILY@2200 IV 12/04/24 00:00 12/04/24 22:33 12.5 MLS/HR Acetaminophen 500 mg Q4HPRN PRN PO 12/04/24 00:00 12/05/24 01:34 500 MG Doxycycline Hyclate 100 ml @ 50 mls/hr Q12H IV 12/04/24 01:00 12/05/24 01:13 50 MLS/HR Diagnostic Test (Pha) 1 strip ACHS 12/04/24 07:00 12/05/24 11:37 1 STRIP Insulin Human Regular ACHS SC 12/04/24 07:00 12/04/24 21:24 4 UNITS Dextrose 50 ml UD PRN IV 12/04/24 00:00 Enoxaparin Sodium 40 mg DAILY SC 12/04/24 10:00 12/04/24 10:17 40 MG Carvedilol 3.125 mg Q12HR PO 12/04/24 10:00 12/05/24 11:36 3.125 MG Levothyroxine Sodium 50 mcg QAM@0600 PO 12/05/24 06:00 12/05/24 06:12 50 MCG Insulin Glargine 20 units DAILY@1000 SC 12/04/24 09:00 12/04/24 10:19 20 UNITS Hydralazine HCl 10 mg Q6HP PRN IV 12/05/24 00:45 12/05/24 08:16 10 MG Amlodipine Besylate 10 mg DAILY PO 12/05/24 08:00 12/05/24 09:03 10 MG Laboratory Results Laboratory Tests 12/05/24 05:36 Chemistry Test 12/05/24 01:20 12/05/24 05:36 Calcium Level 9.6 mg/dL (8.7-10.4) 9.5 mg/dL (8.7-10.4) Magnesium Level 1.6 mg/dL (1.6-2.6) Coagulation Test 12/05/24 05:36 Prothrombin Time 11.3 sec (9.3-11.8) Prothrombin Time INR 1.07 (0.9-1.15) Activated Partial Thromboplast Time 28.6 SEC (24.5-34.5) Urinalysis Test 12/04/24 15:58 Urine Color Light-yellow (Yellow) Urine Clarity Clear (Clear) Urine pH 5.5 (5.0-9.0) Urine Specific [place] 1.016 (1.001-1.035) Urine Protein 1+ (Negative) H Urine Ketones Negative (Negative) Urine Blood Negative /uL (Negative) Urine Nitrite Negative (Negative) Urine Bilirubin Negative (Negative) Urine Urobilinogen Normal mg/dL (Negative) Urine Leukocyte Esterase Negative /uL (Negative) Urine RBC 1 /hpf (0 - 3) Urine Microscopic WBC 1 /HPF (0-3) Urine Squamous Epithelial Cells None seen /hpf (<5) Urine Bacteria None seen /hpf (None Seen) Urine Osmolality 558 mOsm/kg Urine Creatinine 83.92 mg/dL (30.0-125.0) Urine Protein/Creatinine Ratio 0.75 Urine Sodium 102 mmol/L (40-220) Urine Glucose Normal mg/dL (Normal) Urine Total Protein 63.2 mg/dL (1-14) H Microbiology Microbiology Date/Time Source Procedure Growth Status 12/03/24 20:25 Blood Blood Culture - Preliminary NO GROWTH AFTER 24 HOURS OF INCUBATION. Resulted Assessment/Plan Assessment/Plan ASSESSMENT: Patient is a 68 year old seen on the floor for a worsening ulcer PLAN: - The patients chart was reviewed, clinical findings were discussed with the patient, the etiologies of the conditions were discussed in detail, and a treatment plan was agreed to at this time, with both oral and written instructions provided. - reviewed advanced imaging - discussed plan is to perform an incision and drainage - patient will be NPO at midnight - take him to the OR tomorrow - we will get cultures in the OR - can weightbear as tolerated in postoperative shoe All questions were answered and concerns addressed to the patient's satisfaction. The patient was given the phone number to the clinic and was told how to make contact with the clinic should any concerns or questions arise. Patient understands that if any questions or concerns arise prior to the next appointment, we should be contacted immediately. FOLLOW-UP: Continue to follow while inpatient Plan discussed with: Patient Problem List: (1) Cellulitis of foot (2) Abscess of foot (3) Diabetic foot ulcer (4) Osteomyelitis of foot (5) Type 2 diabetes mellitus with diabetic neuropathy (6) Wound of foot Date of Service: Dec 05, 2024 Billing Provider: RADHA ROMANO DPM Common Visit Codes: [id number] INP/OBS CARE(HIGH) RADHA ROMANO DPM Dec 05, 2024 12:25
[2024-12-05] MEDS ORDERED: PROPOFOL 10 MG/ML 20 ML IV ONE (12:44)
[2024-12-05] MEDS ORDERED: fentaNYL CITRATE 100 MCG/2 ML VL ONE (12:44)
--- NOTE | 2024-12-05 13:10 | DVHOP2 ---
Operative Report - 2 Report Details Date: 12/05/24 Preop Diagnosis: 1. Right foot abscess 2. RIght foot osteomyelitis 3. Right foot cellulitis 4. Right foot diabetic ulcer Postop Diagnosis: Same as preop Surgeon: Radha Romano MD Anesthesiologist: See anesthesia Anesthesia: Mac Consent: The patient was informed of the risks and benefits of the procedure. These include but are not limited to complications of anesthesia, postoperative infection, incomplete relief of symptoms, recurrence of symptoms, damage to blood vessels, nerves and tendons, deep venous thrombosis, pulmonary embolism and possible need for repeat surgery in the future. Complications: None Estimated Blood Loss: Minimal Fluids: See anesthesia Findings: Consistent with the diagnosis Indications for Surgery: Worsening right foot ulcer Name of Procedure Performed 1. Right foot I&D to bone (60275) 2. Right foot bone biopsy () Procedure Details Procedure Details: PRE-PROCEDURE INFORMATION: In the pre-op holding area, the extremity to be operated on was clearly marked and the patient verified correct laterality of the marking. The patient was transferred to the OR table and placed in a supine position. A timeout was performed in which identification of the correct patient, procedure, location, and materials was done. The right foot and leg were prepped and draped in normal sterile fashion. DESCRIPTION OF PROCEDURE: Attention was directed to the right where area of fluctuance was noted. An incision was made over this area and was deepened through blunt dissection. The incision was deepened to the level of abscess and bone. Care was taken to the dissection to avoid any neurovascular and tendinous structures. The incision was deepened to the bone, and the abscess appeared to be purulent fluid consistent with pus. The cortices of the bone was then removed with rongeur an all necrotic tissue. After the abscess was drained, the area was irrigated with 3 L normal saline using cysto tubing. Deep cultures were then obtained from the wound. The area was then inspected and any areas of tracking, especially along the tendons were also drained. A bone biopsy was then taken of the _ which was deepened to the muscle belly and tendons. The bone was then sent to pathology to determine the extent of osteomyelitis. The wound was packed with Betadine-soaked gauze and we will need to be closed at a later date. POSTOPERATIVE INFORMATION: The patient tolerated the above noted procedure and anesthesia well and was transferred to the PACU with vital signs stable, and vascular status intact with capillary refill intact to all digits. Deep cultures were taken. Bone was sent off to pathology to rule out osteomyelitis. Wound was left open and we will be taken back on Sunday for repeat incision and drainage with possible closure. Specimen: Right 5th metatarsal Condition Good Disposition Still a Patient RADHA ROMANO DPM Dec 05, 2024 13:10
[2024-12-05] MEDS ORDERED: ONDANSETRON HCL 4 MG/2 ML VIAL ONE (13:19)
[2024-12-05] MEDS ORDERED: ePHEDrine SULFATE 50 MG/ML AMP ONE (13:19)
--- NOTE | 2024-12-05 13:39 | DVHPNRES ---
Progress Note Date Seen: Dec 05, 2024 Resident Creating Document: BING DOUGLAS RESIDENT Has the PT tested + for MRSA If YES, has PT been informed?: No Medical Necessity Reason Pt with a Central, PICC or Fol: No Subjective Review of Systems This is a 68-year-old male with past medical history of hypertension, chronic kidney disease, diabetes mellitus for the past 10 years using 35 units of Lantus daily, history of right big toe and 4th toe amputation, right 5th toe incision and drainage two years ago, right foot osteomyelitis two years ago and history of back surgery who presented to the ED with chief complaint of right 5th digit wound and tenderness. Patient states that he has being having a callus below the level of the 5th digit of the right foot since he is putting more bear weight on that side of the foot due to previous amputations. Patient states that he used to get shaved the callus by a sql ssis developer before but recently move to this area and had a new sql ssis developer which is the one that he is taking care of the callus now. He states that he thinks the sql ssis developer shaved too much the callus the last time and caused an open wound we severe tenderness. Upon my examination, there is no open wound at this time. There is mild collection of minimal fluid at the level of the callus with slight erythema surrounding the callus. Foot x-ray was ordered showing amputation of the 1st and 4th toes of the right foot with osteoporotic changes in the proximal phalanx of the 2nd toe distal portion of the 1st metatarsal. Osteomyelitis could not be excluded reason why we ordered an MRI of the foot which is still pending. Patient denied fever/chills, chest pain, shortness of breath or any other complaints at this time. We will admit the patient for further assessment and management of cellulitis and rule out osteomyelitis. Patient seen and examined at bedside. MRI of the foot showed fluid collection at the level of the closed wound but ruled out osteomyelitis at this time. Cant Hooker scheduled and incision and drainage of the wound today which was performed successfully and biopsy was taken and sent to pathology to completely rule out osteomyelitis. Patient will continue on IV antibiotics doxycycline and cefepime. We will monitor his blood pressure which was in the higher side. Patient denies any fever/chills or any other associated symptoms at this point. ROS Constitutional: Denies weight loss, fever and chills. HEENT: Denies changes in vision and hearing. Respiratory: Denies shortness of breath and cough Cardiovascular: Denies chest discomfort or palpitations GI: Denies abdominal pain, nausea, vomiting and diarrhea. : Denies dysuria and urinary frequency. Musculoskeletal: Denies myalgias and joint pain Skin: Denies rash and pruritus. Neurological: Denies dizziness, headache, vision or hearing problems Objective vital signs Vital Sign Date Time Temp Pulse Resp B/P (MAP) Pulse Ox O2 Delivery O2 Flow Rate FiO2 12/05/24 13:00 97.3 82 18 144/75 (98) 97 97.3 12/04/24 21:48 Room Air* 0 21 Total Intake and Output 12/04/24 12/04/24 12/05/24 15:00 23:00 07:00 Intake Total 100 ml Output Total 600 ml Balance -600 ml 100 ml medications Current Medications Medications Dose Ordered Sig/Reza Route Start Time Stop Time Status Last Admin Dose Admin Cefepime HCl 50 ml @ 12.5 mls/hr DAILY@2200 IV 12/04/24 00:00 12/04/24 22:33 12.5 MLS/HR Acetaminophen 500 mg Q4HPRN PRN PO 12/04/24 00:00 12/05/24 01:34 500 MG Doxycycline Hyclate 100 ml @ 50 mls/hr Q12H IV 12/04/24 01:00 12/05/24 01:13 50 MLS/HR Diagnostic Test (Pha) 1 strip ACHS 12/04/24 07:00 12/05/24 11:37 1 STRIP Insulin Human Regular ACHS SC 12/04/24 07:00 12/04/24 21:24 4 UNITS Dextrose 50 ml UD PRN IV 12/04/24 00:00 Enoxaparin Sodium 40 mg DAILY SC 12/04/24 10:00 12/04/24 10:17 40 MG Carvedilol 3.125 mg Q12HR PO 12/04/24 10:00 12/05/24 11:36 3.125 MG Levothyroxine Sodium 50 mcg QAM@0600 PO 12/05/24 06:00 12/05/24 06:12 50 MCG Insulin Glargine 20 units DAILY@1000 SC 12/04/24 09:00 12/04/24 10:19 20 UNITS Hydralazine HCl 10 mg Q6HP PRN IV 12/05/24 00:45 12/05/24 08:16 10 MG Amlodipine Besylate 10 mg DAILY PO 12/05/24 08:00 12/05/24 09:03 10 MG Examination Physical Examination General: Patient alert and oriented in person, place and time. Patient following commands. HEENT: Normocephalic, atraumatic, moist mucous membranes Respiratory/pulmonary: Clear lungs bilaterally, vesicular murmurs present in almost all lung boyle, no associated crackles or wheezes. Cardiovascular: Normal heart sounds S1 and S2 with no associated murmurs Abdomen: Abdomen nondistended, there is no pain to palpation in any of the abdominal quadrants, no palpable masses. Extremities: There is a closed wound in the surface aspect of the right foot below the 5th digit consistent with a closed wound, no purulent drainage, there is mild collection of fluid at the level of the closed wound with slight erythema surrounding the callus. Patient also has amputation of the right big toe and 4th digit of the right foot. There is no peripheral edema present at the lower extremities. Peripheral Pulses: 3+ Radial (R). 3+ Radial (L). 3+ Dorsalis pedis (R). 3+ Dorsalis pedis(L) Skin: No rashes or pruritus, there is no sacral edema present at this time. Neurological: Intact cranial nerves with no focal neurologic deficits laboratory and microbiology Laboratory Tests 12/05/24 05:36 Test 12/05/24 05:36 Range/Units Serum Glucose 182 H 74-106 mg/dL Microbiology Date/Time Source Procedure Growth Status 12/03/24 20:25 Blood Blood Culture - Preliminary NO GROWTH AFTER 24 HOURS OF INCUBATION. Resulted Problem List/Assessment/Plan Problem List/Assessment/Plan Assessment/Plan Acute right foot pain due to cellulitis of the 5th digit of the right foot, R/O osteomyelitis -there is a closed wound in the sole face of the right foot below the 5th digit consistent with a callus, there is no drainage from the wound but there is a small fluid collection at the level of the callus surrounded by slight erythema. -right foot x-ray showed amputation of the 1st and 4th toes with osteoporotic changes of the proximal phalanx of the 2nd toe and distal portion of the 1st metatarsal. Osteo not excluded -Ordered MRI of the foot to Rule out osteomyelitis -Consulted sql ssis developer -continue IV cefepime -continue IV doxycycline, no vancomycin due to kidney function. -wound care and wound dressing daily -maintain blood sugars between 140-180 -incision and drainage was performed today by sql ssis developer and biopsy of the tissue was sent to pathologist. Uncontrolled Diabetes mellitus type 2 insulin-dependent -Ordered hemoglobin A1c -continue Lantus 20 units q.a.m. 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 -increase amlodipine to 10mg daily -Start lisinopril 10mg daily -Monitor BP Hypothyroidism -TSH was 10.15 -free T4 0.84 -continue levothyroxine 50 mcg q.a.m. DVT prophylaxys 40mg sc Goals of care discussed with the patient for > 25min, FULL CODE Plan discussed with Dr. Lobato Plan discussed with: Patient My Orders My Orders Orders - BING DOUGLAS Procedure Category Date Status Time Amlodipine Tablet PHA 12/05/24 In Process (Norvasc Tablet) 08:00 Dietary Evaluation Review Comments: 1. Advise timely diet advancement s/p I&D 2. Will monitor diet progression/oral intakes, recommend advancement to 75 gm CHO per meal to meet est. needs 3. Keep BG <180 mg/dl while inpatient 4. To support recovery, consider oral supplement Ensure High Protein BID (provides 160 kcal, 16 gm pro, 19 gm CHO per carton) Expected Outcomes/Goals: Maintain skin integrity, post-op healing. Date of Service: Dec 05, 2024 Billing Provider: CHRIS LOBATO MD Common Visit Codes: [id number] INP/OBS CARE(HIGH) BING DOUGLAS RESIDENT Dec 05, 2024 13:39 CHRIS LOBATO MD Dec 05, 2024 19:40
[2024-12-05] MEDS: LINEZOLID 600MG/300ML 300 ML IV SCH (23:38)
[2024-12-06] VITALS (8 sets, daily range): BP systolic 127–149; BP diastolic 66–76; PULSE 70–78; RESP 18–24; TEMP 97.5–98.2; O2SAT 96–100
[2024-12-06 07:22] LABS: Potassium 4.8 mmol/L (3.5-5.1)
[2024-12-06 07:23] LABS: Anion Gap 9 (5-15); Calcium 9.3 mg/dL (8.7-10.4)
[2024-12-06 07:28] LABS: BUN/Creatinine Ratio 25.6 (10.0-20.0)
[2024-12-06 07:36] LABS: Basophils # (auto) 0 10 ^3/uL (0-0.2); Basophils % (auto) 0.3 % (0.0-2.0); Eosinophils # (auto) 0 10 ^3/uL (0-0.8); Eosinophils % (auto) 0.5 % (0.0-7.0); Hematocrit 34.5 % (41.0-53.0); Hemoglobin 11.7 g/dL (13.5-17.5); Lymphocytes # (auto) 0.8 10 ^3/uL (0.4-5.4); Lymphocytes % (auto) 11.8 % (10.0-50.0); Mean Corpuscular Hemoglobin 29.8 pg (28.0-32.0); Mean Corpuscular Hgb Conc. 34.1 g/dL (32.0-36.0); Mean Corpuscular Volume 87.5 fL (80.0-100.0); Monocytes # (auto) 0.6 10 ^3/uL (0-1.3); Monocytes % (auto) 8.1 % (0.0-12.0); Neutrophils # (auto) 5.5 10 ^3/uL (1.6-8.6); Neutrophils % (auto) 79.3 % (37.0-80.0); Nucleated Red Blood Cells % 0.1 %; Platelet Count (auto) 156 10^3/uL (140-450); Red Blood Cells 3.94 10^6/uL (4.5-5.90); Red Cell Distribution Width 14.2 % (11.8-14.3); White Blood Cell 6.9 10^3/uL (4.4-10.8)
[2024-12-06 07:45] LABS: Blood Urea Nitrogen 56 mg/dL (9-23); Carbon Dioxide 19 mmol/L (20-31); Chloride 108 mmol/L (98-107); Glucose 252 mg/dL (74-106); Sodium 136 mmol/L (136-145)
[2024-12-06] MEDS: LISINOPRIL 5 MG TAB PO SCH (08:55)
--- NOTE | 2024-12-06 15:28 | DVHPNRES ---
Progress Note Date Seen: Dec 06, 2024 Resident Creating Document: SONIA LI RESIDENT Has the PT tested + for MRSA If YES, has PT been informed?: No Medical Necessity Reason Pt with a Central, PICC or Fol: No Subjective Review of Systems This is a 68-year-old male with past medical history of hypertension, chronic kidney disease, diabetes mellitus for the past 10 years using 35 units of Lantus daily, history of right big toe and 4th toe amputation, right 5th toe incision and drainage two years ago, right foot osteomyelitis two years ago and history of back surgery who presented to the ED with chief complaint of right 5th digit wound and tenderness. Patient states that he has being having a callus below the level of the 5th digit of the right foot since he is putting more bear weight on that side of the foot due to previous amputations. Patient states that he used to get shaved the callus by a lens cleaner before but recently move to this area and had a new lens cleaner which is the one that he is taking care of the callus now. He states that he thinks the lens cleaner shaved too much the callus the last time and caused an open wound we severe tenderness. Upon my examination, there is no open wound at this time. There is mild collection of minimal fluid at the level of the callus with slight erythema surrounding the callus. Foot x-ray was ordered showing amputation of the 1st and 4th toes of the right foot with osteoporotic changes in the proximal phalanx of the 2nd toe distal portion of the 1st metatarsal. Osteomyelitis could not be excluded reason why we ordered an MRI of the foot which is still pending. Patient denied fever/chills, chest pain, shortness of breath or any other complaints at this time. We will admit the patient for further assessment and management of cellulitis and rule out osteomyelitis. Patient seen and examined at bedside. MRI of the foot showed fluid collection at the level of the closed wound but ruled out osteomyelitis at this time. Status post I&D. Continue IV antibiotic. Biopsy sent for ruling out osteomyelitis. No any other complaint at this point except foot pain. ROS Constitutional: Denies weight loss, fever and chills. HEENT: Denies changes in vision and hearing. Respiratory: Denies shortness of breath and cough Cardiovascular: Denies chest discomfort or palpitations GI: Denies abdominal pain, nausea, vomiting and diarrhea. : Denies dysuria and urinary frequency. Musculoskeletal: Denies myalgias and joint pain Skin: Denies rash and pruritus. Neurological: Denies dizziness, headache, vision or hearing problems Objective vital signs Vital Sign Date Time Temp Pulse Resp B/P (MAP) Pulse Ox O2 Delivery O2 Flow Rate FiO2 12/06/24 11:43 97.5 76 18 149/72 (97) 99 97.5 12/06/24 08:00 Room Air* 0 21 Total Intake and Output 12/05/24 12/05/24 12/06/24 15:00 23:00 07:00 Intake Total 10 ml 340 ml 690 ml Output Total 2 ml Balance 10 ml 340 ml 688 ml medications Current Medications Medications Dose Ordered Sig/Reza Route Start Time Stop Time Status Last Admin Dose Admin Cefepime HCl 50 ml @ 12.5 mls/hr DAILY@2200 IV 12/04/24 00:00 12/05/24 21:25 12.5 MLS/HR Acetaminophen 500 mg Q4HPRN PRN PO 12/04/24 00:00 12/05/24 01:34 500 MG Diagnostic Test (Pha) 1 strip ACHS 12/04/24 07:00 12/06/24 11:30 1 STRIP Insulin Human Regular ACHS SC 12/04/24 07:00 12/06/24 12:23 4 UNITS Dextrose 50 ml UD PRN IV 12/04/24 00:00 Enoxaparin Sodium 40 mg DAILY SC 12/04/24 10:00 12/06/24 08:57 40 MG Carvedilol 3.125 mg Q12HR PO 12/04/24 10:00 12/06/24 08:56 3.125 MG Levothyroxine Sodium 50 mcg QAM@0600 PO 12/05/24 06:00 12/06/24 06:20 50 MCG Insulin Glargine 20 units DAILY@1000 SC 12/04/24 09:00 12/06/24 08:52 20 UNITS Hydralazine HCl 10 mg Q6HP PRN IV 12/05/24 00:45 12/05/24 08:16 10 MG Amlodipine Besylate 10 mg DAILY PO 12/05/24 08:00 12/06/24 08:57 10 MG Lisinopril 10 mg DAILY PO 12/06/24 10:00 12/06/24 08:55 10 MG Linezolid 300 ml @ 150 mls/hr Q12HR IV 12/05/24 22:00 12/06/24 08:54 150 MLS/HR Examination General: Patient alert and oriented in person, place and time. Patient following commands. HEENT: Normocephalic, atraumatic, moist mucous membranes Respiratory/pulmonary: Clear lungs bilaterally, vesicular murmurs present in almost all lung boyle, no associated crackles or wheezes. Cardiovascular: Normal heart sounds S1 and S2 with no associated murmurs Abdomen: Abdomen nondistended, there is no pain to palpation in any of the abdominal quadrants, no palpable masses. Extremities: There is a closed wound in the surface aspect of the right foot below the 5th digit consistent with a closed wound, no purulent drainage, there is mild collection of fluid at the level of the closed wound with slight erythema surrounding the callus. Patient also has amputation of the right big toe and 4th digit of the right foot. There is no peripheral edema present at the lower extremities. Peripheral Pulses: 3+ Radial (R). 3+ Radial (L). 3+ Dorsalis pedis (R). 3+ Dorsalis pedis(L) Skin: No rashes or pruritus, there is no sacral edema present at this time. Neurological: Intact cranial nerves with no focal neurologic deficits laboratory and microbiology Laboratory Tests 12/06/24 05:46 Test 12/06/24 05:46 Range/Units Serum Glucose 252 H 74-106 mg/dL Microbiology Date/Time Source Procedure Growth Status 12/05/24 13:26 Foot Right Gram Stain Pending Resulted 12/05/24 13:26 Foot Right Anaerobic Culture Pending Resulted 12/05/24 13:26 Foot Right Aerobic Culture - Preliminary Resulted 12/03/24 20:25 Blood Blood Culture - Preliminary NO GROWTH AFTER 48 HOURS OF INCUBATION. Resulted Problem List/Assessment/Plan Problem List/Assessment/Plan Acute right foot pain due to cellulitis of the 5th digit of the right foot, R/O osteomyelitis -there is a closed wound in the sole face of the right foot below the 5th digit consistent with a callus, there is no drainage from the wound but there is a small fluid collection at the level of the callus surrounded by slight erythema. -right foot x-ray showed amputation of the 1st and 4th toes with osteoporotic changes of the proximal phalanx of the 2nd toe and distal portion of the 1st metatarsal. Osteo not excluded -Ordered MRI of the foot to Rule out osteomyelitis -Consulted lens cleaner -continue IV cefepime -continue IV doxycycline, discontinued vancomycin. -wound care and wound dressing daily -maintain blood sugars between 140-180 -incision and drainage was performed by lens cleaner and biopsy of the tissue was sent to pathologist. Uncontrolled Diabetes mellitus type 2 insulin-dependent, HGB A1c 7.9%. -continue Lantus 25 units q.a.m., lispro 5 units t.i.d. before each meal. -continue Accu-Chek q.4. 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 -increase amlodipine to 10mg daily -Start lisinopril 10mg daily -Monitor BP Hypothyroidism -TSH was 10.15 -free T4 0.84 -continue levothyroxine 50 mcg q.a.m. DVT prophylaxys 40mg sc Goals of care discussed with the patient for > 25min, FULL CODE Plan discussed with Dr. Isidro Plan discussed with: Patient, Other Dietary Evaluation Review Comments: 1. Advise timely diet advancement s/p I&D 2. Will monitor diet progression/oral intakes, recommend advancement to 75 gm CHO per meal to meet est. needs 3. Keep BG <180 mg/dl while inpatient 4. To support recovery, consider oral supplement Ensure High Protein BID (provides 160 kcal, 16 gm pro, 19 gm CHO per carton) Expected Outcomes/Goals: Maintain skin integrity, post-op healing. Date of Service: Dec 06, 2024 Billing Provider: CHRIS ISIDRO MD Common Visit Codes: [id number] INP/OBS CARE(MOD) SONIA LI RESIDENT Dec 06, 2024 15:28 CHRIS ISIDRO MD Dec 07, 2024 09:40
[2024-12-06] MEDS: INSULIN LISPRO (HUMAN) 100 UNITS/ML ML SC SCH (17:15)
[2024-12-07] VITALS (8 sets, daily range): BP systolic 127–160; BP diastolic 70–77; PULSE 69–77; RESP 17–19; TEMP 97.3–97.9; O2SAT 96–100
[2024-12-07] MEDS: InsuLIN REG 1unit/0.01ml Soln (100units/ml) SC SCH (00:12)
[2024-12-07] MEDS: ACCU-CHEK COMFORT CURVE STRIP VI SCH (00:13)
[2024-12-07 09:24] LABS: Basophils # (auto) 0.1 10 ^3/uL (0-0.2); Basophils % (auto) 1.2 % (0.0-2.0); Eosinophils # (auto) 0.1 10 ^3/uL (0-0.8); Eosinophils % (auto) 2.3 % (0.0-7.0); Hemoglobin 13.2 g/dL (13.5-17.5); Lymphocytes # (auto) 1.1 10 ^3/uL (0.4-5.4); Lymphocytes % (auto) 17.6 % (10.0-50.0); Mean Corpuscular Hemoglobin 29.4 pg (28.0-32.0); Monocytes # (auto) 0.4 10 ^3/uL (0-1.3); Monocytes % (auto) 5.8 % (0.0-12.0); Neutrophils # (auto) 4.4 10 ^3/uL (1.6-8.6); Neutrophils % (auto) 73.1 % (37.0-80.0); Platelet Count (auto) 196 10^3/uL (140-450); Red Blood Cells 4.49 10^6/uL (4.5-5.90); Red Cell Distribution Width 14.4 % (11.8-14.3)
[2024-12-07 09:37] LABS: Anion Gap 8 (5-15); Carbon Dioxide 22 mmol/L (20-31); Potassium 4.5 mmol/L (3.5-5.1); Sodium 139 mmol/L (136-145)
[2024-12-07 09:38] LABS: Calcium 9.8 mg/dL (8.7-10.4)
[2024-12-07 09:43] LABS: BUN/Creatinine Ratio 27.1 (10.0-20.0); Blood Urea Nitrogen 57 mg/dL (9-23); Chloride 109 mmol/L (98-107); Glucose 80 mg/dL (74-106)
[2024-12-07] MEDS: INSULIN LANTUS (GLARGINE) 1 /0.01ml (100units/ml) SC SCH (10:13)
[2024-12-07] MEDS ORDERED: SEVOFLURANE 250 ML SOL IN ONE (14:07)
--- NOTE | 2024-12-07 14:18 | DVHPNRES ---
Progress Note Date Seen: Dec 07, 2024 Resident Creating Document: BING DOUGLAS RESIDENT Has the PT tested + for MRSA If YES, has PT been informed?: No Medical Necessity Reason Pt with a Central, PICC or Fol: No Subjective Review of Systems This is a 68-year-old male with past medical history of hypertension, chronic kidney disease, diabetes mellitus for the past 10 years using 35 units of Lantus daily, history of right big toe and 4th toe amputation, right 5th toe incision and drainage two years ago, right foot osteomyelitis two years ago and history of back surgery who presented to the ED with chief complaint of right 5th digit wound and tenderness. Patient states that he has being having a callus below the level of the 5th digit of the right foot since he is putting more bear weight on that side of the foot due to previous amputations. Patient states that he used to get shaved the callus by a r d internship before but recently move to this area and had a new r d internship which is the one that he is taking care of the callus now. He states that he thinks the r d internship shaved too much the callus the last time and caused an open wound we severe tenderness. Upon my examination, there is no open wound at this time. There is mild collection of minimal fluid at the level of the callus with slight erythema surrounding the callus. Foot x-ray was ordered showing amputation of the 1st and 4th toes of the right foot with osteoporotic changes in the proximal phalanx of the 2nd toe distal portion of the 1st metatarsal. Osteomyelitis could not be excluded reason why we ordered an MRI of the foot which is still pending. Patient denied fever/chills, chest pain, shortness of breath or any other complaints at this time. We will admit the patient for further assessment and management of cellulitis and rule out osteomyelitis. Patient seen and examined at bedside. Patient is alert and oriented in person, place and time and is stable hemodynamically at this time. We will continue IV linezolid and cefepime. Patient is scheduled for a 2nd incision and drainage by r d internship, Dr. Ritchie. We will keep the patient NPO and tomorrow a.m. we will go for surgical debridement. Meanwhile we will insert a midline for possible IV antibiotics upon discharge. We will continue current medical management at this point. Patient denies fever/chills, or any other symptoms at this time. ROS Constitutional: Denies weight loss, fever and chills. HEENT: Denies changes in vision and hearing. Respiratory: Denies shortness of breath and cough Cardiovascular: Denies chest discomfort or palpitations GI: Denies abdominal pain, nausea, vomiting and diarrhea. : Denies dysuria and urinary frequency. Musculoskeletal: Denies myalgias and joint pain Skin: Denies rash and pruritus. Neurological: Denies dizziness, headache, vision or hearing problems Objective vital signs Vital Sign Date Time Temp Pulse Resp B/P (MAP) Pulse Ox O2 Delivery O2 Flow Rate FiO2 12/07/24 10:12 151/73 12/07/24 10:12 75 12/07/24 08:00 Room Air* 0 21 12/07/24 05:00 97.7 17 98 97.7 Total Intake and Output 12/06/24 12/06/24 12/07/24 15:00 23:00 07:00 Intake Total 1300 ml 800 ml Balance 1300 ml 800 ml medications Current Medications Medications Dose Ordered Sig/Reza Route Start Time Stop Time Status Last Admin Dose Admin Cefepime HCl 50 ml @ 12.5 mls/hr DAILY@2200 IV 12/04/24 00:00 12/07/24 01:30 12.5 MLS/HR Acetaminophen 500 mg Q4HPRN PRN PO 12/04/24 00:00 12/05/24 01:34 500 MG Dextrose 50 ml UD PRN IV 12/04/24 00:00 Enoxaparin Sodium 40 mg DAILY SC 12/04/24 10:00 12/07/24 10:11 40 MG Carvedilol 3.125 mg Q12HR PO 12/04/24 10:00 12/07/24 10:12 3.125 MG Levothyroxine Sodium 50 mcg QAM@0600 PO 12/05/24 06:00 12/07/24 07:14 50 MCG Hydralazine HCl 10 mg Q6HP PRN IV 12/05/24 00:45 12/05/24 08:16 10 MG Amlodipine Besylate 10 mg DAILY PO 12/05/24 08:00 12/07/24 10:12 10 MG Lisinopril 10 mg DAILY PO 12/06/24 10:00 12/07/24 10:11 10 MG Linezolid 300 ml @ 150 mls/hr Q12HR IV 12/05/24 22:00 12/07/24 10:11 150 MLS/HR Insulin Glargine 25 units DAILY@1000 SC 12/07/24 10:00 12/07/24 10:13 25 UNITS Insulin Human Lispro 5 units TIDAC SC 12/06/24 17:00 12/07/24 07:15 5 UNITS Diagnostic Test (Pha) 1 strip Q6HR 12/07/24 00:00 12/07/24 11:13 1 STRIP Insulin Human Regular Q6HR SC 12/07/24 00:00 12/07/24 07:17 2 UNITS Examination Physical Examination General: Patient alert and oriented in person, place and time. Patient following commands. HEENT: Normocephalic, atraumatic, moist mucous membranes Respiratory/pulmonary: Clear lungs bilaterally, vesicular murmurs present in almost all lung boyle, no associated crackles or wheezes. Cardiovascular: Normal heart sounds S1 and S2 with no associated murmurs Abdomen: Abdomen nondistended, there is no pain to palpation in any of the abdominal quadrants, no palpable masses. Extremities: There is a closed wound in the surface aspect of the right foot below the 5th digit consistent with a closed wound, S/P sx debridement (Incision and drainage). Patient also has amputation of the right big toe and 4th digit of the right foot. There is no peripheral edema present at the lower extremities. Peripheral Pulses: 3+ Radial (R). 3+ Radial (L). 3+ Dorsalis pedis (R). 3+ Dorsalis pedis(L) Skin: No rashes or pruritus, there is no sacral edema present at this time. Neurological: Intact cranial nerves with no focal neurologic deficits laboratory and microbiology Laboratory Tests 12/07/24 09:00 Test 12/07/24 09:00 Range/Units Serum Glucose 80 # 74-106 mg/dL Microbiology Date/Time Source Procedure Growth Status 12/05/24 13: Foot Right Gram Stain Pending Resulted 12/05/24 13:26 Foot Right Anaerobic Culture - Preliminary Resulted 12/05/24: Foot Right Aerobic Culture - Preliminary Resulted 12/03/24 20:25 Blood Blood Culture - Preliminary NO GROWTH AFTER 72 HOURS OF INCUBATION. Resulted Problem List/Assessment/Plan Problem List/Assessment/Plan Assessment/Plan Acute right foot pain due to cellulitis of the 5th digit of the right foot, R/O osteomyelitis -there is a closed wound in the sole face of the right foot below the 5th digit consistent with a callus, there is no drainage from the wound but there is a small fluid collection at the level of the callus surrounded by slight erythema. -right foot x-ray showed amputation of the 1st and 4th toes with osteoporotic changes of the proximal phalanx of the 2nd toe and distal portion of the 1st metatarsal. Osteo not excluded -Ordered MRI of the foot to Rule out osteomyelitis -Consulted r d internship -continue IV cefepime -Stopped doxycycline -Continue IV linezolid -wound care and wound dressing daily -maintain blood sugars between 140-180 -incision and drainage was performed today by r d internship and biopsy of the tissue was sent to pathologist. -patient is scheduled for 2nd incision and drainage by r d internship tomorrow a.m. -we will keep patient NPO Uncontrolled Diabetes mellitus type 2 insulin-dependent -Ordered hemoglobin A1c -continue Lantus 25 units q.a.m. 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 -increase amlodipine to 10mg daily -Start lisinopril 10mg daily -Monitor BP Hypothyroidism -TSH was 10.15 -free T4 0.84 -continue levothyroxine 50 mcg q.a.m. DVT prophylaxys 40mg sc Goals of care discussed with the patient for > 25min, FULL CODE Plan discussed with Dr. Isidro Plan discussed with: Patient My Orders My Orders Orders - BING DOUGLAS RESIDENT Procedure Category Date Status Time Free T4 (Free LAB 12/07/24 In Process Thyroxine) 07:24 Insert Midline ORDERS 12/07/24 Transmitted 13:25 Dietary Evaluation Review Comments: 1. Advise timely diet advancement s/p I&D 2. Will monitor diet progression/oral intakes, recommend advancement to 75 gm CHO per meal to meet est. needs 3. Keep BG <180 mg/dl while inpatient 4. To support recovery, consider oral supplement Ensure High Protein BID (provides 160 kcal, 16 gm pro, 19 gm CHO per carton) Expected Outcomes/Goals: Maintain skin integrity, post-op healing. Date of Service: Dec 07, 2024 Billing Provider: CHRIS ISIDRO MD Common Visit Codes: [id number] INP/OBS CARE(MOD) BING DOUGLAS RESIDENT Dec 07, 2024 14:18 CHRIS ISIDRO MD Dec 08, 2024 18:14
[2024-12-07] MEDS: SODIUM CHLORIDE 0.9% 1,000 ML IV SCH (14:30)
[2024-12-08] VITALS (9 sets, daily range): BP systolic 108–155; BP diastolic 72–78; PULSE 66–99; RESP 16–20; TEMP 97.4–98.2; O2SAT 10–100
[2024-12-08 06:36] LABS: Anion Gap 10 (5-15); Carbon Dioxide 20 mmol/L (20-31); Potassium 4.5 mmol/L (3.5-5.1); Sodium 139 mmol/L (136-145)
[2024-12-08 06:37] LABS: Calcium 9.6 mg/dL (8.7-10.4)
[2024-12-08 06:39] LABS: Basophils # (auto) 0 10 ^3/uL (0-0.2); Basophils % (auto) 0.6 % (0.0-2.0); Eosinophils # (auto) 0.1 10 ^3/uL (0-0.8); Eosinophils % (auto) 2.1 % (0.0-7.0); Hemoglobin 12.9 g/dL (13.5-17.5); Lymphocytes # (auto) 1.2 10 ^3/uL (0.4-5.4); Lymphocytes % (auto) 20.8 % (10.0-50.0); Mean Corpuscular Hemoglobin 29.8 pg (28.0-32.0); Mean Corpuscular Hgb Conc. 33.9 g/dL (32.0-36.0); Mean Corpuscular Volume 87.7 fL (80.0-100.0); Monocytes # (auto) 0.5 10 ^3/uL (0-1.3); Neutrophils # (auto) 4.1 10 ^3/uL (1.6-8.6); Neutrophils % (auto) 68.5 % (37.0-80.0); Platelet Count (auto) 186 10^3/uL (140-450); Red Blood Cells 4.33 10^6/uL (4.5-5.90); Red Cell Distribution Width 14.1 % (11.8-14.3); White Blood Cell 5.9 10^3/uL (4.4-10.8)
[2024-12-08 06:42] LABS: BUN/Creatinine Ratio 25.8 (10.0-20.0); Blood Urea Nitrogen 54 mg/dL (9-23); Chloride 109 mmol/L (98-107); Glucose 169 mg/dL (74-106)
--- NOTE | 2024-12-08 08:42 | DVHPNRES ---
Progress Note Date Seen: Dec 08, 2024 Resident Creating Document: BING DOUGLAS RESIDENT Has the PT tested + for MRSA If YES, has PT been informed?: No Medical Necessity Reason Pt with a Central, PICC or Fol: No Subjective Review of Systems This is a 68-year-old male with past medical history of hypertension, chronic kidney disease, diabetes mellitus for the past 10 years using 35 units of Lantus daily, history of right big toe and 4th toe amputation, right 5th toe incision and drainage two years ago, right foot osteomyelitis two years ago and history of back surgery who presented to the ED with chief complaint of right 5th digit wound and tenderness. Patient states that he has being having a callus below the level of the 5th digit of the right foot since he is putting more bear weight on that side of the foot due to previous amputations. Patient states that he used to get shaved the callus by a etiology teacher before but recently move to this area and had a new etiology teacher which is the one that he is taking care of the callus now. He states that he thinks the etiology teacher shaved too much the callus the last time and caused an open wound we severe tenderness. Upon my examination, there is no open wound at this time. There is mild collection of minimal fluid at the level of the callus with slight erythema surrounding the callus. Foot x-ray was ordered showing amputation of the 1st and 4th toes of the right foot with osteoporotic changes in the proximal phalanx of the 2nd toe distal portion of the 1st metatarsal. Osteomyelitis could not be excluded reason why we ordered an MRI of the foot which is still pending. Patient denied fever/chills, chest pain, shortness of breath or any other complaints at this time. We will admit the patient for further assessment and management of cellulitis and rule out osteomyelitis. Patient seen and examined at bedside. Patient was kept NPO after midnight for 2nd incision and drainage with surgical debridement performed by etiology teacher this morning. We ordered midline placement. Patient still on linezolid and cefepime, we will continue broad-spectrum antibiotics until cultures are back. Patient is currently on room air, denies shortness of breath, chest pain, fever/chills or any other symptoms at this time. Patient is currently on low rate IV fluids due to DESTINEY. ROS Constitutional: Denies weight loss, fever and chills. HEENT: Denies changes in vision and hearing. Respiratory: Denies shortness of breath and cough Cardiovascular: Denies chest discomfort or palpitations GI: Denies abdominal pain, nausea, vomiting and diarrhea. : Denies dysuria and urinary frequency. Musculoskeletal: Denies myalgias and joint pain Skin: Denies rash and pruritus. Neurological: Denies dizziness, headache, vision or hearing problems Objective vital signs Vital Sign Date Time Temp Pulse Resp B/P (MAP) Pulse Ox O2 Delivery O2 Flow Rate FiO2 12/08/24 07:46 Room Air* 0 21 12/08/24 04:56 97.7 70 16 132/72 (92) 10 97.7 Total Intake and Output 12/07/24 12/07/24 12/08/24 15:00 23:00 07:00 Intake Total 870 ml 300 ml Balance 870 ml 300 ml medications Current Medications Medications Dose Ordered Sig/Reza Route Start Time Stop Time Status Last Admin Dose Admin Cefepime HCl 50 ml @ 12.5 mls/hr DAILY@2200 IV 12/04/24 00:00 12/07/24 21:51 12.5 MLS/HR Acetaminophen 500 mg Q4HPRN PRN PO 12/04/24 00:00 12/05/24 01:34 500 MG Dextrose 50 ml UD PRN IV 12/04/24 00:00 Enoxaparin Sodium 40 mg DAILY SC 12/04/24 10:00 12/07/24 10:11 40 MG Carvedilol 3.125 mg Q12HR PO 12/04/24 10:00 12/07/24 21:52 3.125 MG Levothyroxine Sodium 50 mcg QAM@0600 PO 12/05/24 06:00 12/07/24 07:14 50 MCG Hydralazine HCl 10 mg Q6HP PRN IV 12/05/24 00:45 12/05/24 08:16 10 MG Amlodipine Besylate 10 mg DAILY PO 12/05/24 08:00 12/07/24 10:12 10 MG Lisinopril 10 mg DAILY PO 12/06/24 10:00 12/07/24 10:11 10 MG Linezolid 300 ml @ 150 mls/hr Q12HR IV 12/05/24 22:00 12/07/24 21:51 150 MLS/HR Insulin Glargine 25 units DAILY@1000 SC 12/07/24 10:00 12/07/24 10:13 25 UNITS Insulin Human Lispro 5 units TIDAC SC 12/06/24 17:00 12/07/24 17:10 5 UNITS Diagnostic Test (Pha) 1 strip Q6HR 12/07/24 00:00 12/08/24 05:51 1 STRIP Insulin Human Regular Q6HR SC 12/07/24 00:00 12/07/24 17:53 4 UNITS Sodium Chloride 1,000 ml @ 60 mls/hr [id number] IV 12/07/24 14:30 12/07/24 14:30 60 MLS/HR Examination Physical Examination General: Patient alert and oriented in person, place and time. Patient following commands. HEENT: Normocephalic, atraumatic, moist mucous membranes Respiratory/pulmonary: Clear lungs bilaterally, no associated crackles or wheezes. Cardiovascular: Normal heart sounds S1 and S2 with no associated murmurs Abdomen: Abdomen nondistended, there is no pain to palpation in any of the abdominal quadrants, no palpable masses. Extremities: There is a closed wound in the surface aspect of the right foot below the 5th digit consistent with a closed wound, S/P sx debridement (Incision and drainage). Patient also has amputation of the right big toe and 4th digit of the right foot. There is no peripheral edema present at the lower extremities. Peripheral Pulses: 3+ Radial (R). 3+ Radial (L). 3+ Dorsalis pedis (R). 3+ Dorsalis pedis(L) Skin: No rashes or pruritus, there is no sacral edema present at this time. Neurological: Intact cranial nerves with no focal neurologic deficits laboratory and microbiology Laboratory Tests 12/08/24 05:54 Test 12/08/24 05:54 Range/Units Serum Glucose 169 H 74-106 mg/dL Microbiology Date/Time Source Procedure Growth Status 12/05/24 13:26 Foot Right Gram Stain - Final Resulted 12/05/24 13:26 Foot Right Anaerobic Culture - Preliminary Resulted 12/05/24 13:26 Foot Right Aerobic Culture - Preliminary Resulted 12/03/24 20:25 Blood Blood Culture - Preliminary NO GROWTH AFTER 72 HOURS OF INCUBATION. Resulted Problem List/Assessment/Plan Problem List/Assessment/Plan Assessment/Plan Acute right foot pain due to cellulitis of the 5th digit of the right foot, R/O osteomyelitis -there is a closed wound in the sole face of the right foot below the 5th digit consistent with a callus, there is no drainage from the wound but there is a small fluid collection at the level of the callus surrounded by slight erythema. -right foot x-ray showed amputation of the 1st and 4th toes with osteoporotic changes of the proximal phalanx of the 2nd toe and distal portion of the 1st metatarsal. Osteo not excluded -Ordered MRI of the foot to Rule out osteomyelitis -Consulted etiology teacher -continue IV cefepime -Continue IV linezolid -wound care and wound dressing daily -maintain blood sugars between 140-180 -incision and drainage was performed today by etiology teacher and biopsy of the tissue was sent to pathologist. -patient is scheduled for 2nd incision and drainage today AM - keep patient NPO until procedure is performed, then placed back -Ordered Midline placement Uncontrolled Diabetes mellitus type 2 insulin-dependent -Ordered hemoglobin A1c -continue Lantus 25 units q.a.m. 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 -increase amlodipine to 10mg daily -Start lisinopril 10mg daily -Monitor BP Hypothyroidism -TSH was 10.15 -free T4 0.84 -continue levothyroxine 50 mcg q.a.m. DVT prophylaxys 40mg sc Goals of care discussed with the patient for > 25min, FULL CODE Plan discussed with Dr. Isidro Plan discussed with: Patient My Orders My Orders Orders - BING DOUGLAS RESIDENT Procedure Category Date Status Time Insert Midline ORDERS 12/07/24 Transmitted 13:25 Sodium Chloride 0.9% PHA 12/07/24 In Process 14:30 Dietary Evaluation Review Comments: 1. Advise timely diet advancement s/p I&D 2. Will monitor diet progression/oral intakes, recommend advancement to 75 gm CHO per meal to meet est. needs 3. Keep BG <180 mg/dl while inpatient 4. To support recovery, consider oral supplement Ensure High Protein BID (provides 160 kcal, 16 gm pro, 19 gm CHO per carton) Expected Outcomes/Goals: Maintain skin integrity, post-op healing. Date of Service: Dec 08, 2024 Billing Provider: CHRIS ISIDRO MD Common Visit Codes: [id number] INP/OBS CARE(MOD) BING DOUGLAS RESIDENT Dec 08, 2024 08:42 CHRIS ISIDRO MD Dec 08, 2024 18:27
--- NOTE | 2024-12-08 12:34 | DVHPN2 ---
Subjective Mr. Desir is 68-year-old male patient with past medical history of right big toe and 4th toe amputation, right 5th toe incision and drainage 2 years back, right foot osteomyelitis 2 years back, diabetes mellitus for the past 10 years on insulin Lantus 35 units daily, hypertension, kidney disease and history of back surgery presented to the ER with a chief complaint of pain and tenderness along with purulent discharge of the right 5th toe. Patient reports that he has a callus for the past year on the solar surface of the 5th left toe for which he was following [facility] and he got it shaved by computer security coordinator Nestor 1 week earlier following which he developed worsening swelling, erythema and subsequently purulent discharge for the past 1 day. Patient could not bear weight on his left feet. He denies fever, chills, shortness of breaths or abdominal complaints. On arrival to the ER, patient was vitally stable, ESR was elevated at 46, lactic acid 0.8, BUN 47 and creatinine 2.38. Foot x-ray was completed which showed osteoarthritic changes of the proximal phalanx of 2nd toe distal portion of the 1st metatarsal, can not exclude osteomyelitis. MRI of the right foot was ordered. Changes from previous H/P or p: No Changes Objective Vitals Vital Signs Date Time Temp Pulse Resp B/P (MAP) Pulse Ox O2 Delivery O2 Flow Rate FiO2 12/08/24 10:57 80 149/78 12/08/24 09:00 98.0 17 98 98.0 12/08/24 07:46 Room Air* 0 21 Intake/Output Intake and Output 12/08/24 07:00 Intake Total 1170 ml Balance 1170 ml Intake Oral 400 ml IV Total 770 ml # Voids 5 # Bowel Movements 2 Exam DERMATOLOGIC EXAM: - Skin is dry and cool to the touch dry bilaterally. - Nails 1-5 of the bilateral foot are thickened, discolored, dystrophic, and tender to palpate with subungual debris - Hair loss noted to bilateral feet - wound on the right lateral foot with a pocket purulence with localized cellulitis and drainage VASCULAR EXAM: - DP and PT pulses are palpable bilaterally. - GENERAL SUPERVISOR is brisk to all digits. - Feet are cool to touch compared to lower legs bilaterally. NEUROLOGIC EXAM: - Normal light touch sensation to the superficial peroneal, deep peroneal, sural, saphenous, and tibial nerve branches. - Protective sensation is diminished as tested with a 5.07 10g Leedey-Elvi bilaterally. MUSCULOSKELETAL EXAM: - No gross deformities - Muscle strength is 5/5 and active motion is pain-free and symmetrical bilaterally - No pain or crepitation with passive range of motion bilaterally to all major pedal joints Medications Current Medications Medications Dose Ordered Sig/Reza Route Start Time Stop Time Status Last Admin Dose Admin Cefepime HCl 50 ml @ 12.5 mls/hr DAILY@2200 IV 12/04/24 00:00 12/07/24 21:51 12.5 MLS/HR Acetaminophen 500 mg Q4HPRN PRN PO 12/04/24 00:00 12/05/24 01:34 500 MG Dextrose 50 ml UD PRN IV 12/04/24 00:00 Enoxaparin Sodium 40 mg DAILY SC 12/04/24 10:00 12/07/24 10:11 40 MG Carvedilol 3.125 mg Q12HR PO 12/04/24 10:00 12/08/24 09:57 3.125 MG Levothyroxine Sodium 50 mcg QAM@0600 PO 12/05/24 06:00 12/07/24 07:14 50 MCG Hydralazine HCl 10 mg Q6HP PRN IV 12/05/24 00:45 12/05/24 08:16 10 MG Amlodipine Besylate 10 mg DAILY PO 12/05/24 08:00 12/08/24 09:56 10 MG Lisinopril 10 mg DAILY PO 12/06/24 10:00 12/08/24 09:57 10 MG Linezolid 300 ml @ 150 mls/hr Q12HR IV 12/05/24 22:00 12/08/24 09:56 150 MLS/HR Insulin Glargine 25 units DAILY@1000 SC 12/07/24 10:00 12/07/24 10:13 25 UNITS Insulin Human Lispro 5 units TIDAC SC 12/06/24 17:00 12/07/24 17:10 5 UNITS Diagnostic Test (Pha) 1 strip Q6HR 12/07/24 00:00 12/08/24 12:00 1 STRIP Insulin Human Regular Q6HR SC 12/07/24 00:00 12/07/24 17:53 4 UNITS Sodium Chloride 1,000 ml @ 60 mls/hr [id number] IV 12/07/24 14:30 12/07/24 14:30 60 MLS/HR Laboratory Results Laboratory Tests 12/08/24 05:54 Chemistry Test 12/08/24 05:54 Calcium Level 9.6 mg/dL (8.7-10.4) Urinalysis Test 12/04/24 15:58 Urine Color Light-yellow (Yellow) Urine Clarity Clear (Clear) Urine pH 5.5 (5.0-9.0) Urine Specific [place] 1.016 (1.001-1.035) Urine Protein 1+ (Negative) H Urine Ketones Negative (Negative) Urine Blood Negative /uL (Negative) Urine Nitrite Negative (Negative) Urine Bilirubin Negative (Negative) Urine Urobilinogen Normal mg/dL (Negative) Urine Leukocyte Esterase Negative /uL (Negative) Urine RBC 1 /hpf (0 - 3) Urine Microscopic WBC 1 /HPF (0-3) Urine Squamous Epithelial Cells None seen /hpf (<5) Urine Bacteria None seen /hpf (None Seen) Urine Osmolality 558 mOsm/kg Urine Creatinine 83.92 mg/dL (30.0-125.0) Urine Protein/Creatinine Ratio 0.75 Urine Sodium 102 mmol/L (40-220) Urine Glucose Normal mg/dL (Normal) Urine Total Protein 63.2 mg/dL (1-14) H Microbiology Microbiology Date/Time Source Procedure Growth Status 12/05/24 13:26 Foot Right Gram Stain - Final Resulted 12/05/24 13:26 Foot Right Anaerobic Culture - Preliminary Resulted 12/05/24 13:26 Foot Right Aerobic Culture - Preliminary Resulted 12/03/24 20:25 Blood Blood Culture - Preliminary NO GROWTH AFTER 72 HOURS OF INCUBATION. Resulted Assessment/Plan Assessment/Plan ASSESSMENT: Patient is a 68 year old seen on the floor 2 days s/p right foot i&D PLAN: - The patients chart was reviewed, clinical findings were discussed with the patient, the etiologies of the conditions were discussed in detail, and a treatment plan was agreed to at this time, with both oral and written instructions provided. - reviewed advanced imaging - discussed plan is to perform an incision and drainage and closure - patient will be NPO at midnight - take him to the OR today - evelauted patients other foot and recommend that he gets routine diabetic foot care - can weightbear as tolerated in postoperative shoe All questions were answered and concerns addressed to the patient's satisfaction. The patient was given the phone number to the clinic and was told how to make contact with the clinic should any concerns or questions arise. Patient understands that if any questions or concerns arise prior to the next appointment, we should be contacted immediately. FOLLOW-UP: Continue to follow while inpatient Plan discussed with: Patient Problem List: (1) Cellulitis of foot (2) Abscess of foot (3) Diabetic foot ulcer (4) Osteomyelitis of foot (5) Type 2 diabetes mellitus with diabetic neuropathy (6) Wound of foot Date of Service: Dec 08, 2024 Billing Provider: RADHA ROMANO DPM Common Visit Codes: [id number] INP/OBS CARE(HIGH) RADHA ROMANO DPM Dec 08, 2024 12:34
--- NOTE | 2024-12-08 12:36 | DVHOP2 ---
Operative Report - 2 Report Details Date: 12/08/24 Preop Diagnosis: 1. Right foot abscess 2. RIght foot osteomyelitis 3. Right foot cellulitis 4. Right foot diabetic ulcer Postop Diagnosis: Same as preop Surgeon: Radha Romano MD Anesthesiologist: See anesthesia Anesthesia: Mac Consent: The patient was informed of the risks and benefits of the procedure. These include but are not limited to complications of anesthesia, postoperative infection, incomplete relief of symptoms, recurrence of symptoms, damage to blood vessels, nerves and tendons, deep venous thrombosis, pulmonary embolism and possible need for repeat surgery in the future. Complications: None Estimated Blood Loss: Minimal Fluids: See anesthesia Findings: Consistent with diagnosis Indications for Surgery: Worsening right foot wound Name of Procedure Performed 1. Right foot I&D to bone (84317) 2. Right foot delayed closure (47847) Procedure Details Procedure Details: PRE-PROCEDURE INFORMATION: In the pre-op holding area, the extremity to be operated on was clearly marked and the patient verified correct laterality of the marking. The patient was transferred to the OR table and placed in a supine position. A timeout was performed in which identification of the correct patient, procedure, location, and materials was done. The right foot and leg were prepped and draped in normal sterile fashion. DESCRIPTION OF PROCEDURE: Attention was directed to the right where area of fluctuance was noted. An incision was made over this area and was deepened through blunt dissection. The incision was deepened to the level of abscess and bone. Care was taken to the dissection to avoid any neurovascular and tendinous structures. The incision was deepened to the bone, and the abscess appeared to be purulent fluid consistent with pus. The cortices of the bone was then removed with rongeur an all necrotic tissue. After the abscess was drained, the area was irrigated with 3 L normal saline using cysto tubing. A delayed closure was then performed using 2-0 nylon after was deemed appropriate with no longer concern for infection. POSTOPERATIVE INFORMATION: The patient tolerated the above noted procedure and anesthesia well and was transferred to the PACU with vital signs stable, and vascular status intact with capillary refill intact to all digits. Patient can be sent home on three weeks of p.o. antibiotics based off cultures. All necrotic bone was removed at this point. Patient can weightbear as tolerated in a postop shoe. Patient will follow up with me in a week. Patient to leave the dressings in place for a week until follow up. Condition Good Disposition Still a Patient RADHA ROMANO DPM Dec 08, 2024 12:36
[2024-12-08] MEDS ORDERED: fentaNYL CITRATE 100 MCG/2 ML VL ONE (12:46)
[2024-12-08] MEDS: BUPIVACAINE 0.5% P/F INJ 10 ML VIAL ONE (13:00)
[2024-12-08] MEDS ORDERED: ePHEDrine SULFATE 50 MG/ML AMP ONE (13:00)
[2024-12-09 01:00] VITALS: BP 158/67; PULSE 87; RESP 18; TEMP 97.8; O2SAT 95
[2024-12-09 05:00] VITALS: BP 161/80; PULSE 83; RESP 20; TEMP 97.4; O2SAT 98
[2024-12-09] MEDS: ceFAZolin 2 GM/D5W50ml 50 ML IV ONE (07:51)
[2024-12-09 08:00] VITALS: PULSE 74
[2024-12-09 08:25] VITALS: BP 152/73; PULSE 86; RESP 16; TEMP 97.6; O2SAT 98
[2024-12-09] MEDS ORDERED: LINE1TAB6 PO (09:03)
[2024-12-09] MEDS ORDERED: LISI10TA34 PO (09:07)
[2024-12-09 09:13] LABS: Potassium 4.2 mmol/L (3.5-5.1); Sodium 141 mmol/L (136-145)
[2024-12-09 09:14] LABS: Anion Gap 8 (5-15); Calcium 9.4 mg/dL (8.7-10.4); Carbon Dioxide 21 mmol/L (20-31)
[2024-12-09 09:15] LABS: Basophils # (auto) 0 10 ^3/uL (0-0.2); Basophils % (auto) 0.5 % (0.0-2.0); Eosinophils # (auto) 0.1 10 ^3/uL (0-0.8); Eosinophils % (auto) 2.4 % (0.0-7.0); Hematocrit 34.3 % (41.0-53.0); Hemoglobin 11.8 g/dL (13.5-17.5); Lymphocytes # (auto) 0.8 10 ^3/uL (0.4-5.4); Lymphocytes % (auto) 15.3 % (10.0-50.0); Mean Corpuscular Hemoglobin 30.2 pg (28.0-32.0); Mean Corpuscular Hgb Conc. 34.5 g/dL (32.0-36.0); Mean Corpuscular Volume 87.8 fL (80.0-100.0); Monocytes # (auto) 0.5 10 ^3/uL (0-1.3); Monocytes % (auto) 9.4 % (0.0-12.0); Neutrophils # (auto) 3.9 10 ^3/uL (1.6-8.6); Neutrophils % (auto) 72.4 % (37.0-80.0); Platelet Count (auto) 143 10^3/uL (140-450); Red Blood Cells 3.91 10^6/uL (4.5-5.90); Red Cell Distribution Width 13.9 % (11.8-14.3); White Blood Cell 5.4 10^3/uL (4.4-10.8)
[2024-12-09 09:19] LABS: BUN/Creatinine Ratio 24.1 (10.0-20.0)
[2024-12-09 09:28] LABS: Blood Urea Nitrogen 49 mg/dL (9-23); Chloride 112 mmol/L (98-107); Glucose 143 mg/dL (74-106)
--- NOTE | 2024-12-09 10:57 | DVHDSRES ---
Discharge Summary Date of Admission Resident Creating Document: BING DOUGLAS RESIDENT Dec 03, 2024 at 23:52 Date of Discharge: Dec 09, 2024 Admitting Diagnosis Right lower extremity cellulitis Wounds: . Wound in the right lower extremity below the 5th digit of the right foot Labs/Diagnostic Data: Laboratory Results Test 12/09/24 08:01 12/09/24 05:48 12/07/24 09:00 12/05/24 05:36 White Blood Count 5.4 10^3/uL (4.4-10.8) Red Blood Count 3.91 10^6/uL (4.5-5.90) Hemoglobin 11.8 g/dL (13.5-17.5) Hematocrit 34.3 % (41.0-53.0) Mean Corpuscular Volume 87.8 fL (80.0-100.0) Mean Corpuscular Hemoglobin 30.2 pg (28.0-32.0) Mean Corpuscular Hemoglobin Concent 34.5 g/dL (32.0-36.0) Red Cell Distribution Width 13.9 % (11.8-14.3) Platelet Count 143 10^3/uL (140-450) Mean Platelet Volume 7.8 fL (6.9-10.8) Neutrophils (%) (Auto) 72.4 % (37.0-80.0) Lymphocytes (%) (Auto) 15.3 % (10.0-50.0) Monocytes (%) (Auto) 9.4 % (0.0-12.0) Eosinophils (%) (Auto) 2.4 % (0.0-7.0) Basophils (%) (Auto) 0.5 % (0.0-2.0) Neutrophils # (Auto) 3.9 10 ^3/uL (1.6-8.6) Lymphocytes # (Auto) 0.8 10 ^3/uL (0.4-5.4) Monocytes # (Auto) 0.5 10 ^3/uL (0-1.3) Eosinophils # (Auto) 0.1 10 ^3/uL (0-0.8) Basophils # (Auto) 0 10 ^3/uL (0-0.2) Nucleated Red Blood Cells 0.0 % Sodium Level 141 mmol/L (136-145) Potassium Level 4.2 mmol/L (3.5-5.1) Chloride Level 112 mmol/L (98-107) Carbon Dioxide Level 21 mmol/L (20-31) Anion Gap 8 (5-15) Blood Urea Nitrogen 49 mg/dL (9-23) Creatinine 2.03 mg/dL (0.700-1.30) Glomerular Filtration Rate Calc 35 mL/min (>90) BUN/Creatinine Ratio 24.1 (10.0-20.0) Serum Glucose 143 mg/dL (74-106) Calcium Level 9.4 mg/dL (8.7-10.4) POC Glucose 224 mg/dl (70-106) Free Thyroxine (T4) Calculated 1.14 ng/dL (0.89-1.76) Prothrombin Time 11.3 sec (9.3-11.8) Prothrombin Time INR 1.07 (0.9-1.15) Activated Partial Thromboplast Time 28.6 SEC (24.5-34.5) Test 12/05/24 01:20 12/04/24 15:58 12/04/24 06:00 12/03/24 20:25 Magnesium Level 1.6 mg/dL (1.6-2.6) Urine Color Light-yellow (Yellow) Urine Clarity Clear (Clear) Urine pH 5.5 (5.0-9.0) Urine Specific [place] 1.016 (1.001-1.035) Urine Protein 1+ (Negative) Urine Ketones Negative (Negative) Urine Blood Negative /uL (Negative) Urine Nitrite Negative (Negative) Urine Bilirubin Negative (Negative) Urine Urobilinogen Normal mg/dL (Negative) Urine Leukocyte Esterase Negative /uL (Negative) Urine RBC 1 /hpf (0 - 3) Urine Microscopic WBC 1 /HPF (0-3) Urine Squamous Epithelial Cells None seen /hpf (<5) Urine Bacteria None seen /hpf (None Seen) Urine Osmolality 558 mOsm/kg Urine Creatinine 83.92 mg/dL (30.0-125.0) Urine Protein/Creatinine Ratio 0.75 Urine Sodium 102 mmol/L (40-220) Urine Glucose Normal mg/dL (Normal) Urine Total Protein 63.2 mg/dL (1-14) Urine Opiates Screen Neg (NEGATIVE) Urine Fentanyl Screen Neg (NEGATIVE) Urine Barbiturates Screen Neg (NEGATIVE) Urine Phencyclidine Screen Neg (NEGATIVE) Urine Amphetamines Screen Neg (NEGATIVE) Urine Benzodiazepines Screen Neg (NEGATIVE) Urine Cocaine Screen Neg (NEGATIVE) Urine Cannabinoids Screen Neg (NEGATIVE) Hemoglobin A1c 7.9 % A1C (<5.7) Total Bilirubin 0.4 mg/dL (0.2-1.0) Aspartate Amino Transferase (AST) 14 U/L (13-40) Alanine Aminotransferase (ALT) 15 U/L (7-40) Alkaline Phosphatase 76 U/L (46-116) Total Protein 7.2 g/dL (5.7-8.2) Albumin 4.0 g/dL (3.2-4.8) Total Triiodothyronine (TT3) 0.93 ng/mL (0.60-1.81) Erythrocyte Sedimentation Rate 46 mm/hr (0-20) Lactic Acid Level 0.8 mmol/L (0.4-2.0) Direct Bilirubin 0.2 mg/dL (<0.3) C-Reactive Protein High Sensitivity 2.00 mg/dL (<1.0) Thyroid Stimulating Hormone (TSH) 10.15 uIU/mL (0.55-4.78) Parathyroid Hormone (Intact) 149.6 pg/mL (18.4-80.1) Other Laboratory Tests 12/09/24 08:01 Brief Hx & Hospital Course: This is a 68-year-old male with past medical history of hypertension, chronic kidney disease, diabetes mellitus for the past 10 years using 35 units of Lantus daily, history of right big toe and 4th toe amputation, right 5th toe incision and drainage two years ago, right foot osteomyelitis two years ago and history of back surgery who presented to the ED with chief complaint of right 5th digit wound and tenderness. Patient states that he has being having a callus below the level of the 5th digit of the right foot since he is putting more bear weight on that side of the foot due to previous amputations. Patient states that he used to get shaved the callus by a special class welder before but recently move to this area and had a new special class welder which is the one that he is taking care of the callus now. He states that he thinks the special class welder shaved too much the callus the last time and caused an open wound we severe tenderness. Upon my examination, there is no open wound at this time. There is mild collection of minimal fluid at the level of the callus with slight erythema surrounding the callus. Foot x-ray was ordered showing amputation of the 1st and 4th toes of the right foot with osteoporotic changes in the proximal phalanx of the 2nd toe distal portion of the 1st metatarsal. Osteomyelitis could not be excluded reason why we ordered an MRI of the foot which is still pending. Patient denied fever/chills, chest pain, shortness of breath or any other complaints at this time. Patient was started on IV linezolid and cefepime. Patient underwent 2 incision and drainage with special class welder as well with wound care and wound dressing changes daily. Today, patient is status post 2nd incision and drainage performed one day ago. Patient denies fever/chills, shortness of breath, chest pain or any other complaint at this time. Patient will be discharged home on linezolid 600 mg b.i.d. for 21 days. Patient needs to follow up closely with special class welder in one week, with his PCP and Infectious Disease. Patient understands and agrees with the plan. ROS Constitutional: Denies weight loss, fever and chills. HEENT: Denies changes in vision and hearing. Respiratory: Denies shortness of breath and cough Cardiovascular: Denies chest discomfort or palpitations GI: Denies abdominal pain, nausea, vomiting and diarrhea. : Denies dysuria and urinary frequency. Musculoskeletal: Denies myalgias and joint pain Skin: Denies rash and pruritus. Neurological: Denies dizziness, headache, vision or hearing problems Physical Examination General: Patient alert and oriented in person, place and time. Patient following commands. HEENT: Normocephalic, atraumatic, moist mucous membranes Respiratory/pulmonary: Clear lungs bilaterally, no associated crackles or wheezes. Cardiovascular: Normal heart sounds S1 and S2 with no associated murmurs Abdomen: Abdomen nondistended, there is no pain to palpation in any of the abdominal quadrants, no palpable masses. Extremities: There is a closed wound in the surface aspect of the right foot below the 5th digit consistent with a closed wound, S/P sx debridement (Incision and drainage). Patient also has amputation of the right big toe and 4th digit of the right foot. There is no peripheral edema present at the lower extremities. Peripheral Pulses: 3+ Radial (R). 3+ Radial (L). 3+ Dorsalis pedis (R). 3+ Dorsalis pedis(L) Skin: No rashes or pruritus, there is no sacral edema present at this time. Neurological: Intact cranial nerves with no focal neurologic deficits Consults/Reason for consult [place] for incision and drainage of the right foot wound. Operations or Procedures CLINICAL INDICATION: foot wound TECHNIQUE: 3 radiographic views of the right foot were obtained. Comparison: None FINDINGS/IMPRESSION: Amputation of the 1st through 3rd toes. Osteoporotic changes of the proximal phalanx of the 2nd toe distal portion of the 1st metatarsal can not exclude osteomyelitis. The visualized joint space is well maintained. The alignment is anatomical. There is no radiopaque foreign body. EXAM: MRI MRI R FOOT WO CONTRAST; DATE: 12/04/2024 08:51 AM HISTORY: r/o osteomyelitis COMPARISON: Radiograph dated 12/03/2024 TECHNIQUE: Multiplanar, multisequence MRI was performed. FINDINGS: Suboptimal motion degraded study. Great toe amputation level of the MTP joint. 3rd ray amputation at the level of with the metatarsal shaft. No bone marrow edema or cortical erosion noted. Dorsal subcutaneous edema. Soft tissue swelling/blistering over the 5th toe is seen measuring up to 0.8 cm in thickness. 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 Lisfranc joint and ligament are intact. The flexor and extensor tendons are unremarkable. Visualized plantar fascia is unremarkable. Moderate plantar musculature fatty atrophy. IMPRESSION: 1. No evidence of osteomyelitis. Soft tissue blistering/ fluid accumulation on the lateral aspect of the 5th toe without underlying cortical erosion or bone marrow edema. EXAM: XY CHEST XRAY 1 VIEW Indication: SOB Technique: Single frontal view of the chest was obtained Comparison: None FINDINGS: Lines and Tubes: None Lungs: No focal consolidation. Pleura: No effusion. No pneumothorax. Cardiomediastinal contours: Unremarkable Bones: No acute osseous abnormality. IMPRESSION: No acute cardiopulmonary disease. 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 Ritchie F/U with Infectious disease Medications: Linezolid 600 mg b.i.d. for 21 days ciprofloxacin 500mg BID for 14 days Lisinopril 10 mg daily Stopped lisinopril 5 mg Continue rest of home medications Discharge Statement: "Patient was advised to return to the ER or call 911 if any headaches, dizziness, shortness of breath, chest pain, abdominal pain, bleeding, fevers, or worsening of medical condition. Patient was counseled about treatment plan, medications, possible side effects, patientverbalized understanding. All questions were answered to the best of my ability. 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
[2024-12-09 12:12] VITALS: BP 152/73; PULSE 86; TEMP 36.4
[2024-12-09 12:47] VITALS: BP 146/69; PULSE 79; RESP 16; TEMP 97.7; O2SAT 98
[2024-12-09] MEDS ORDERED: CIPR500T4 PO (12:58)
== END 2024-12-09 14:40 | disposition home or self-care (01) | DRG 579 ==
LOC: ER 17:54 → OVERFLOW 23:52 → CENTRAL 12-04 21:48
PROVIDERS: ADMIT Internal Medicine; ATTEND Emergency Medicine
PROC: 0QBN0ZX Excision of Right Metatarsal, Open Approach, Diagnostic (ICD-10-PCS; 2024-12-05)
PROC: 0L9V0ZZ Drainage of Right Foot Tendon, Open Approach (ICD-10-PCS; principal; 2024-12-05 13:08)
PROC: 0Y9M0ZZ Drainage of Right Foot, Open Approach (ICD-10-PCS; 2024-12-08)
DX: L03.115 Cellulitis of right lower limb (principal); N17.0 Acute kidney failure with tubular necrosis; L02.611 Cutaneous abscess of right foot; E11.621 Type 2 diabetes mellitus with foot ulcer; E11.22 Type 2 diabetes mellitus with diabetic chronic kidney disease; I12.9 Hypertensive chronic kidney disease with stage 1 through stage 4 chronic kidney disease, or unspecified chronic kidney disease; E11.65 Type 2 diabetes mellitus with hyperglycemia; N18.32 Chronic kidney disease, stage 3b; E11.40 Type 2 diabetes mellitus with diabetic neuropathy, unspecified; L97.519 Non-pressure chronic ulcer of other part of right foot with unspecified severity; E78.5 Hyperlipidemia, unspecified; E03.9 Hypothyroidism, unspecified; Z98.1 Arthrodesis status; Z88.5 Allergy status to narcotic agent; Z88.8 Allergy status to other drugs, medicaments and biological substances; Z79.899 Other long term (current) drug therapy; Z79.82 Long term (current) use of aspirin; Z79.4 Long term (current) use of insulin; Z79.891 Long term (current) use of opiate analgesic; Z79.1 Long term (current) use of non-steroidal anti-inflammatories (NSAID); Z83.3 Family history of diabetes mellitus; Z80.51 Family history of malignant neoplasm of kidney
CPT/HCPCS: 36415; 71045; 73630; 73718; 80048; 80053; 80076; 80307; 81001; 82570; 82962; 83036; 83605; 83735; 83935; 83970; 84156; 84300; 84439; 84443; 84480; 85025; 85610; 85652; 85730; 86141; 86850; 86900; 86901; 87040; 87070; 87075; 87077; 87186; 87205; 93005; G0378; J0692; J1815; J2405; J2704; J3490

== ENCOUNTER 2025-04-27 15:48 | Emergency (ER) | payer OTHER, MEDICAID ==
[~2025-04-27] VITALS: Ht 182.9 cm; Wt 93.3 kg
[~2025-04-27 15:48] MED LIST changes: +AMLO1TAB22 PO; +ATOR20TA50 PO; +CARV12.544 PO; +CIPR500T4 PO; -DICL1GEL73 TOP; +INSUINJ37 SC; +LINE1TAB6 PO; +LISI10TA34 PO; -SODI650T PO
[2025-04-27 16:40] VITALS: BP 148/71; PULSE 74; RESP 18; TEMP 98; O2SAT 98
--- NOTE | 2025-04-27 16:51 | ED.PDOC ---
[place]. trauma (HPI) HPI Comments 69 year old male presents to the ED with a chief complaint of fall injury onset today. Patient was at gas station when he slipped, fell and landed on LT side, hitting LT side of head on floor. He is currently experiencing LT head pain, Lt rib pain, Lt shoulder pain. Denies LOC, nausea, vomiting, dizziness, numbness/ tingling, weakness. PMHx DM. No other symptoms or modifying factors present at this time. Chief Complaint: Fall Injury Time Seen by MD: 16:35 Reviewed notes: Medications, Allergies Allergies: Coded Allergies: Atropine (Verified Allergy, Unknown, 12/03/24) Morphine (Verified Allergy, Unknown, 12/03/24) Home Meds Active Scripts Ciprofloxacin Hcl (Ciprofloxacin Hcl) 500 Mg Tab, 1 TAB PO BID for 14 Days, #28 TAB Prov:BING DOUGLAS RESIDENT 12/09/24 Lisinopril (Lisinopril) 10 Mg Tab, 10 MG PO DAILY for 30 Days, #30 TAB Prov:BING DOUGLAS RESIDENT 12/09/24 Linezolid (Zyvox) 600 Mg Tab, 600 MG PO BID for 21 Days, #42 TAB Prov:BING DOUGLAS RESIDENT 12/09/24 Reported Medications Loratadine (CLARITIN TABLET) 10 Mg Tb, 1 TAB PO DAILY for 30 Days, #30 12/04/24 Levothyroxine Sodium (Levothyroxine Sodium) 50 Mcg Tab, 1 TAB PO DAILY for 90 Days, #90 12/04/24 Omeprazole (Omeprazole Dr) 40 Mg Cap, 1 CAP PO DAILY for 90 Days, #90 12/04/24 Albuterol Sulfate (Albuterol Sulfate Hfa) 108 Mcg/Act Aer, 2 PUFF INH Q4HR PRN for 33 Days, #17 12/04/24 Aspirin (Aspirin Low Dose) 81 Mg Tab, 1 TAB PO DAILY for 90 Days, #90 12/04/24 Baclofen (Baclofen) 10 Mg Tab, 1 TAB PO Q12HR PRN for 30 Days, #60 12/04/24 Amlodipine Besylate (Amlodipine Besylate) 5 Mg Tab, 5 MG PO DAILY for 30 Days, MG 12/04/24 Atorvastatin Calcium (ATORVASTATIN CALCIUM) 20 Mg Tab, 1 TAB PO DAILY, #30 TAB 5 Refills 12/04/24 Gabapentin (Gabapentin) 300 Mg Cap, 1 TAB PO TID for 30 Days, #90 12/04/24 Insulin Glargine (Lantus Solostar) 100 Unit/Ml Inj, 35 UNITS SC HS 12/04/24 Carvedilol (Carvedilol) 12.5 Mg Tab, 1 TAB PO BID 12/04/24 Information Source: Patient Mode of Arrival: Ambulatory Severity: Moderate Timing: Hours Duration: Since onset Prehospital treatment: None Location: Head, (L) Shoulder, Other Location of laceration: None Mechanism: Fall Past Medical History PAST MEDICAL HISTORY: DM Surgical History (Other): foot surgery December 2024 Family History Family History: Reviewed,noncontributory to illness, No family hx of Cancer, No family hx of DM, No family hx of Heart roseann, No family hx of HTN, No family hx ofKidney roseann, No family hx of Liver roseann, No family hx of Lung roseann, No family hx of Stroke Social History Smoker: Non-Smoker Alcohol: Denies ETOH Use Drugs: Denies Drug Use Lives In: Home Constitutional: denies: chills, diaphoresis, fatigue, fever, malaise, sweats, weakness, others EENTM: denies: blurred vision, double vision, ear bleeding, ear discharge, ear drainage, ear pain, ear ringing, eye pain, eye redness, hearing loss, mouth pain, mouth swelling, nasal discharge, nose bleeding, nose congestion, nose yakov n, photophobia, tearing, throat pain, throat swelling, voice changes, others Respiratory: denies: cough, hemoptysis, orthopnea, SOB at rest, shortness of breath, SOB with excertion, stridor, wheezing, others Cardiovascular: denies: chest pain, dizzy spells, diaphoresis, Dyspnea on exertion, edema, irregular heart beat, left arm pain, lightheadedness, palpitations, PND, syncope, others Gastrointestinal: denies: abdomen distended, abdominal pain, blood streaked bowels, constipated, diarrhea, dysphagia, difficulty swallowing, hematemesis, melena, nausea, poor appetite, poor fluid intake, rectal bleeding, rectal pain, vomiting, others Genitourinary: denies: burning, dysuria, flank pain, frequency, hematuria, incontinence, penile discharge, penile sore, pain, testicle pain, testicle swelling, urgency, others Neurological: reports: headache; denies: dizziness, fainting, left sided numbn ess, left sided weakness, numbness, paresthesia, pre-existing deficit, right sided numbness, right sided weakness, seizure, speech problems, tingling, tremors, weakness, others Musculoskeletal: reports: others (LT shoulder pain, LT rib pain); denies: back pain, gout, joint pain, joint swelling, muscle pain, muscle stiffness, neck pain Integumetry: denies: bruises, change in color, change in hair/nails, dryness, laceration, lesions, lumps, rash, wounds, others Allergic/Immunocompromised: denies: Difficulty Healing, Frequent Infections, Hives, Itching, others Endocrine: denies: excessive hunger, excessive sweating, excessive thirst, excessive urination, flushing, intolerance to cold, intolerance to heat, unexplained weight gain, unexplained weight loss, others Psychiatric: denies: anxiety, bipolar disorder, depression, hopeless, panic disorder, schizophrenia, sleepless, suicidal, others All Other Systems: Reviewed and Negative Physical Exam General Appearance: Mild Distress, Moderate Distress, Obese HEENT: Normal ENT Inspection, PERRL/EOMI, Pharynx Normal, TMs Normal, Other (Contusion left temporal scalp) Neck: Full Range of Motion, Non-Tender, Normal, Normal Inspection Respiratory: Chest Non-Tender, Lungs Clear, No Accessory Muscle Use, No Respiratory Distress, Normal Breath Sounds, Other (Exquisite pain to the left ribs) Cardiovascular: No Edema, No JVD, No Murmur, No Gallop, Normal Peripheral Pulses, Regular Rate/Rhythm Breast Exam: Deferred Gastrointestinal: No Organomegaly, Non Tender, No Pulsatile Mass, Normal Bowel Sounds, Soft Genitalia: Deferred Pelvic: Deferred Rectal: Deferred Extremities: No calf tenderness, Normal capillary refill, Normal inspection, Normal range of motion, Non-tender, No pedal edema Musculoskeletal : Location: Left Extremity Location: Shoulder Apperance: Normal, Limited ROM, Tenderness: Moderate 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 Was a procedure done?: No Differential Diagnosis Multiple Trauma: Closed Head Injury, Fractures, Pulmonary Contusion, Contusion, Hematoma Neck Injury: N/A X-Ray, Labs, Meds, VS Vital Signs Date Time Temp Pulse Resp B/P (MAP) Pulse Ox O2 Delivery O2 Flow Rate FiO2 04/27/25 16:40 74 18 98 Room Air 04/27/25 16:40 98.0 74 18 148/71 (96) 98 98.0 04/27/25 15:50 97.7 76 20 134/68 99 97.7 Current Medications Medications (Trade) Dose Ordered Sig/Reza Route Start Time Stop Time Status Last Admin Ketorolac Tromethamine (Toradol Injection) 60 mg ONCE ONCE IM 04/27/25 17:00 04/27/25 17:02 DC 04/27/25 17:08 X-Ray, Labs, Meds, VS Comment Course in the [employer] eventful patient had a fall at a gas station in his complaining of shoulder pain rib pain and a headache mostly also pain to the left parietal scalp The CT scan is normal X-ray of the left shoulder is normal Left ribs do not show any fracture Patient will be discharged home to follow up with his PCP Time of 1ST Reevaluation: 17:05 Reevaluation 1ST: Unchanged Time of 2ND Reevaluation: 18:06 Reevaluation 2ND: Improved Consultation: PCP Patient Education/Counseling: Diagnosis, Treatment, Prognosis, Need For Follow Up Family Education/Counseling: Diagnosis, Treatment, Prognosis, Need For Follow Up, No Family Present Departure 1 Departure Time of Disposition: 18:06 Impression: Primary Impression: Accidental fall Qualified Codes: W19.XXXA - Unspecified fall, initial encounter Additional Impressions: Contusion of parietal region of scalp Qualified Codes: S00.03XA - Contusion of scalp, initial encounter Contusion of left shoulder Qualified Codes: S40.012A - Contusion of left shoulder, initial encounter Contusion of rib on left side Qualified Codes: S29.8XXA - Other specified injuries of thorax, initial encounter Disposition: 01 HOME / SELF CARE / HOMELESS Condition: Fair Additional Instructions: And follow up with your PCP e-Prescriptions Cyclobenzaprine Hcl (Cyclobenzaprine Hcl) 10 Mg Tab 10 MG PO TID for 10 Days, #30 TAB Prov: JUSTIN HENRIQUEZ MD 04/27/25 Diclofenac Potassium (Diclofenac Potassium) 50 Mg Tab 1 TAB PO TIDP for 10 Days, #30 TAB Prov: JUSTIN HENRIQUEZ MD 04/27/25 Discharged With: Self Critical Care Note Critical Care Time?: No Stability Stability form required: No Heart Score Heart Score: Heart Score Response (Comments) Value History N/A 0 EKG N/A 0 Age >65 2 Risk Factors 1 or 2 risk factors 1 Troponin N/A 0 Total 3 I personally scribed for JUSTIN HENRIQUEZ MD ([email or web address]) on 04/27/25 at 16:51. Electronically submitted by Merna Romero ([email or web address]). JUSTIN HENRIQUEZ MD Apr 27, 2025 16:51
[2025-04-27] MEDS: KETOROLAC TROMETH 60MG/2ML VIAL IM ONE (17:08)
--- NOTE | 2025-04-27 17:56 | DVH ---
CLINICAL INDICATION: Fall TECHNIQUE: 2 radiographic views of the left shoulder were obtained. Comparison: None FINDINGS/IMPRESSION: Bony alignment is normal. No fractures or dislocations. Calcifications in the soft tissues adjacent to the greater tuberosity and in the glenohumeral joint s uggests calcified tendinitis and possible arthritic changes. Consider MRI symptoms persist.
--- NOTE | 2025-04-27 17:59 | DVH ---
CLINICAL INDICATION: Fall TECHNIQUE: 4 radiographic views of the left ribs were obtained. Comparison: XY CHEST XRAY 1 VIEW on DOS: 12/05/24 FINDINGS/IMPRESSION: There is no pneumothorax or pleural effusions. Postop changes with anterior fusion of the lower cervical spine. Calcifications of the costochondral cartilage are noted on the left. There are no displaced rib fractures.
[2025-04-27] MEDS ORDERED: DICL50TA2 PO (18:13)
[2025-04-27] MEDS ORDERED: CYCL-839 PO (18:13)
[2025-04-27] MEDS ORDERED: HYDR-4902 PO (18:13)
--- NOTE | 2025-04-27 18:28 | DVH ---
EXAM: CT HEAD WITHOUT CONTRAST INDICATION: Acute fall TECHNIQUE: CT of the head without intravenous contrast. Radiation Dose Information: CT Dose: CTDI volume is 56.31 mGy. Dose-length product is 1109.73 mGy*cm The dose indicators for CT are the volume Computed Tomography (CT) Dose Index (CTDIvol) and the Dose Length Product (DLP), and are measured in units of mGy and mGy-cm, respectively. These indicators are not patient dose, but values generated from the CT scanner acquisition factors. The report includes radiation exposure data for exposures received during this examination. COMPARISON: None FINDINGS: There is no evidence of acute intracranial hemorrhage, extra-axial collection, mass effect, midline s hift, herniation or hydrocephalus. The ventricles, sulci and cisterns are age appropriate. The robin-white differentiation is intact. Patchy periventricular and subcortical white matter hypoattenuation is nonspecific but may be related to small vessel ischemic disease. The visualized paranasal sinuses and mastoid air cells are clear. Scalp edema posterior left occipital area. No displaced skull fractures. IMPRESSION: 1. No acute intracranial abnormality.
== END 2025-04-27 18:23 | disposition home or self-care (01) ==
LOC: ER 15:48
DX: S00.03XA Contusion of scalp, initial encounter (principal); S20.212A Contusion of left front wall of thorax, initial encounter; S40.012A Contusion of left shoulder, initial encounter; E11.9 Type 2 diabetes mellitus without complications; Z79.82 Long term (current) use of aspirin; Z79.899 Other long term (current) drug therapy; Z88.5 Allergy status to narcotic agent; W18.39XA Other fall on same level, initial encounter; Y93.89 Activity, other specified; Y92.89 Other specified places as the place of occurrence of the external cause; Y99.8 Other external cause status
CPT/HCPCS: 70450; 71101; 73030; 96372; 99285; J1885

== ENCOUNTER 2025-05-01 11:06 | Emergency (ER) | payer OTHER, MEDICAID ==
[~2025-05-01] VITALS: Ht 182.9 cm; Wt 96.6 kg
[~2025-05-01 11:06] MED LIST changes: +CYCL-839 PO; +DICL50TA2 PO
[2025-05-01 11:45] VITALS: BP 136/72; PULSE 71; RESP 16; TEMP 98; O2SAT 97
[2025-05-01] MEDS ORDERED: LEVO500T91 PO (11:46)
--- NOTE | 2025-05-01 11:51 | ED.PDOC ---
History of Present Illness HPI Comments A 69 YEAR OLD MALE PRESENTS TO THE ED WITH COMPLAINT OF ONGOING WOUND. HISTORY INCLUDES A RIGHT FOOT I&D THAT EXTENDED TO THE BONE, PERFORMED IN NOVEMBER 2024. THE PATIENT HAS BEEN CONSISTENTLY EVALUATED SINCE THEN BUT REPORTS AN INCREASE IN PAIN OVER THE PAST WEEK. THE PATIENT STATES THAT DURING A DRESSING CHANGE BY A HOME HEALTH NURSE TODAY, SANGUINEOUS DRAINAGE SUDDENLY CAME FROM THE WOUND, WHICH IS LOCATED ON THE LATERAL ASPECT OF THE RIGHT FIFTH DIGIT. THE PATIENT HAS A FOLLOW-UP APPOINTMENT WITH THEIR PRIMARY CARE PROVIDER IN THREE DAYS. THE PATIENT HAS NOT BEEN ON ANTIBIOTICS RECENTLY, BUT THE LAST COURSE WAS LEVOFLOXACIN. PATIENT DENIES FEVER, CHILLS, SHORTNESS OF BREATH, CHEST PAIN, ABDOMINAL PAIN, NAUSEA, VOMITING, HEADACHE, OR OTHER COMPLAINTS. NO OTHER SYMPTOMS OR MODIFYING FACTORS AT THIS TIME. PATIENT IS ALERT, ORIENTED X 4, AND HAS STEADY GAIT. Chief Complaint: Wound Check Time Seen by MD: 11:33 Reviewed Notes: Nurses Notes, Medications, Allergies Allergies: Coded Allergies: Atropine (Verified Allergy, Unknown, 12/03/24) Morphine (Verified Allergy, Unknown, 12/03/24) Home Meds Active Scripts Levofloxacin Hemihydrate (LEVAQUIN 500 MG) 500 Mg Tab, 1 TAB PO DAILY, #10 TAB Prov:JUDI PHOENIX 05/01/25 Cyclobenzaprine Hcl (Cyclobenzaprine Hcl) 10 Mg Tab, 10 MG PO TID for 10 Days, #30 TAB Prov:JUSTIN HENRIQUEZ MD 04/27/25 Diclofenac Potassium (Diclofenac Potassium) 50 Mg Tab, 1 TAB PO TIDP for 10 Da ys, #30 TAB Prov:JUSTIN HENRIQUEZ MD 04/27/25 Ciprofloxacin Hcl (Ciprofloxacin Hcl) 500 Mg Tab, 1 TAB PO BID for 14 Days, #28 TAB Prov:BING DOUGLAS 12/09/24 Lisinopril (Lisinopril) 10 Mg Tab, 10 MG PO DAILY for 30 Days, #30 TAB Prov:BING DOUGLAS 12/09/24 Linezolid (Zyvox) 600 Mg Tab, 600 MG PO BID for 21 Days, #42 TAB Prov:BING DOUGLAS 12/09/24 Reported Medications Loratadine (CLARITIN TABLET) 10 Mg Tb, 1 TAB PO DAILY for 30 Days, #30 12/04/24 Levothyroxine Sodium (Levothyroxine Sodium) 50 Mcg Tab, 1 TAB PO DAILY for 90 Days, #90 12/04/24 Omeprazole (Omeprazole Dr) 40 Mg Cap, 1 CAP PO DAILY for 90 Days, #90 12/04/24 Albuterol Sulfate (Albuterol Sulfate Hfa) 108 Mcg/Act Aer, 2 PUFF INH Q4HR PRN for 33 Days, #17 12/04/24 Aspirin (Aspirin Low Dose) 81 Mg Tab, 1 TAB PO DAILY for 90 Days, #90 12/04/24 Baclofen (Baclofen) 10 Mg Tab, 1 TAB PO Q12HR PRN for 30 Days, #60 12/04/24 Amlodipine Besylate (Amlodipine Besylate) 5 Mg Tab, 5 MG PO DAILY for 30 Days, MG 12/04/24 Atorvastatin Calcium (ATORVASTATIN CALCIUM) 20 Mg Tab, 1 TAB PO DAILY, #30 TAB 5 Refills 12/04/24 Gabapentin (Gabapentin) 300 Mg Cap, 1 TAB PO TID for 30 Days, #90 12/04/24 Insulin Glargine (Lantus Solostar) 100 Unit/Ml Inj, 35 UNITS SC HS 12/04/24 Carvedilol (Carvedilol) 12.5 Mg Tab, 1 TAB PO BID 12/04/24 Information Source: Patient Mode of Arrival: Ambulatory Severity: Mild Timing: Hours Duration: Since onset Medication Refill: For: Other (RIGHT PLANTAR FOOT WOUND RECHECK ) Past Medical History PAST MEDICAL HISTORY: DM Family History Family History: Reviewed,noncontributory to illness, No family hx of Cancer, No family hx of DM, No family hx of Heart roseann, No family hx of HTN, No family hx ofKidney roseann, No family hx of Liver roseann, No family hx of Lung roseann, No family hx of Stroke Social History Smoker: Non-Smoker Alcohol: Denies ETOH Use Drugs: Denies Drug Use Lives In: Home Constitutional: denies: chills, diaphoresis, fatigue, fever, malaise, sweats, weakness, others EENTM: denies: blurred vision, double vision, ear bleeding, ear discharge, ear drainage, ear pain, ear ringing, eye pain, eye redness, hearing loss, mouth pain, mouth swelling, nasal discharge, nose bleeding, nose congestion, nose pain, photophobia, tearing, throat pain, throat swelling, voice changes, others Respiratory: denies: cough, hemoptysis, orthopnea, SOB at rest, shortness of breath, SOB with excertion, stridor, wheezing, others Cardiovascular: denies: chest pain, dizzy spells, diaphoresis, Dyspnea on exertion, edema, irregular heart beat, left arm pain, lightheadedness, palpitations, PND, syncope, others Gastrointestinal: denies: abdomen distended, abdominal pain, blood streaked bowels, constipated, diarrhea, dysphagia, difficulty swallowing, hematemesis, melena, nausea, poor appetite, poor fluid intake, rectal bleeding, rectal pain, vomiting, others Genitourinary: denies: burning, dysuria, flank pain, frequency, hematuria, incontinence, penile discharge, penile sore, pain, testicle pain, testicle swelling, urgency, others Neurological: denies: dizziness, fainting, headache, left sided numbness, left sided weakness, numbness, paresthesia, pre-existing deficit, right sided nu mbness, right sided weakness, seizure, speech problems, tingling, tremors, weakness, others Musculoskeletal: denies: back pain, gout, joint pain, joint swelling, muscle pain, muscle stiffness, neck pain, others Integumetry: reports: lesions, wounds; denies: bruises, change in color, change in hair/nails, dryness, laceration, lumps, rash, others Allergic/Immunocompromised: denies: Difficulty Healing, Frequent Infections, Hives, Itching, others Hematologic/Lymphatic: denies: anemia, blood clots, easy bleeding, easy bruising, swollen glands, others Endocrine: denies: excessive hunger, excessive sweating, excessive thirst, excessive urination, flushing, intolerance to cold, intolerance to heat, unexplained weight gain, unexplained weight loss, others Psychiatric: denies: anxiety, bipolar disorder, depression, hopeless, panic disorder, schizophrenia, sleepless, suicidal, others All Other Systems: Reviewed and Negative Physical Exam General Appearance: No Apparent Distress, Normal HEENT: Normal ENT Inspection, PERRL/EOMI, Pharynx Normal, TMs Normal Neck: Full Range of Motion, Non-Tender, Normal, Normal Inspection Respiratory: Chest Non-Tender, Lungs Clear, No Accessory Muscle Use, No Respiratory Distress, Normal Breath Sounds Cardiovascular: No Edema, No JVD, No Murmur, No Gallop, Normal Peripheral Pulses, Regular Rate/Rhythm Breast Exam: Deferred Gastrointestinal: No Organomegaly, Non Tender, No Pulsatile Mass, Normal Bowel Sounds, Soft Genitalia: Deferred Pelvic: Deferred Rectal: Deferred Extremities: No calf tenderness, Normal capillary refill, Normal inspection, Normal range of motion, Non-tender, No pedal edema Musculoskeletal : Apperance: Normal Neurologic: Alert, electric brain wave equipment mechanic II-XII nml as Tested, No Motor Deficits, Normal Affect, Normal Mood, No Sensory Deficits Cerebellar Function: Normal Reflexes: Normal Skin: Dry, Normal Color, Warm, Wounds (A SMALL OPEN WOUND WITH FLUID DRAINAGE ON RIGHT LATERAL PLANTAR FOOT, NO REDNESS, SWELLING AND PUS DRAINAGE. ) Peripheral Pulses: 2+ carotid (R), 2+ carotid (L), 2+ dorsalis pedis (R), 2+ dorsalis pedis (L) Lymphatic: No Adenopathy Was a procedure done? Was a procedure done?: No Differential Dx Considerations may include: INCISION WOUND RECHECK OF RIGHT FOOT X-Ray, Labs, Meds, VS Vital Signs Date Time Temp Pulse Resp B/P (MAP) Pulse Ox O2 Delivery O2 Flow Rate FiO2 05/01/25 11:45 98.0 71 16 136/72 (93) 97 98.0 05/01/25 11:45 71 16 97 Room Air 05/01/25 11:09 98.0 71 16 136/72 97 98.0 X-Ray, Labs, Meds, VS Comment EXTERNAL MEDICAL RECORDS REVIEWED: [NONE] INDEPENDENT HISTORIANS: [NONE] SOCIAL DETERMINANTS OF HEALTH: [NONE] LABS ORDERED: NONE REVIEWED AND INTERPRETED RESULTS: NONE IMAGING ORDERED: NONE TREATMENTS ORDERED: UPON ASSESSMENT, THE WOUND WAS UNWRAPPED, AND EXPRESSION WITHOUT FORCE WAS PERFORMED IN WHICH A COLLECTION OF BLOOD AND CLEAR DRAINAGE EXPELLED FROM WOUND SITE. NO FURTHER DRAINAGE WAS NOTED POST APPLYING PRESSURE. STERIL GAUZE APPLIED THE WOUND REGION. PROCEDURES PERFORMED: NONE CRITICAL CARE TIME: NONE I HAVE DISCUSSED THE PATIENT WITH THE ATTENDING PHYSICIAN, S/HE AGREES WITH THE PATIENT'S PLAN OF CARE AND DISPOSITION. BASED ON HISTORY OF PRESENT ILLNESS, AND PHYSICAL EXAM, PATIENT WILL BE DISCHARGED HOME. DISCUSSED PLAN FOR DISCHARGE HOME WITH RX [LEVAQUIN 500MG]. MEDICATION WARNINGS GIVEN. SHARED DECISION MAKING: DISCUSSED WITH PATIENT THAT THEIR WORKUP WAS NORMAL. PATIENT INSTRUCTED TO FOLLOW UP WITH PRIMARY CARE PROVIDER IN 1-2 DAYS FOR RE- EVALUATION OF SYMPTOMS. PATIENT VERBALIZES UNDERSTANDING TO RETURN TO ED FOR NEW OR WORSENING SYMPTOMS OR IF FOLLOW UP WITH PCP CANNOT BE OBTAINED. PATIENT FEELS COMFORTABLE GOING HOME AT THIS TIME. ALL QUESTIONS ADDRESSED AT TIME OF DISCHARGE. Time of 1ST Reevaluation: 12:02 Reevaluation 1ST: Unchanged Patient Education/Counseling: Diagnosis, Treatment, Prognosis Family Education/Counseling: Diagnosis, Treatment, No Family Present Medical Screening: No EMC Exist At This Time SEPSIS Sepsis Screen Date sepsis recognized/suspect: May 01, 2025 Time Sepsis recognized/suspect: 1111 Recent Procedure: No On Antibiotic Therapy: No Respiratory Rate >20: No Heart Rate >90: No Temp<36 C (96.8 F) or >38.3 C: No SBP <90 or MAP <65 mmHG: No New Acute Mental Status Change: No Is the patient on CPAP, BIPAP,: No Vital Signs Date Time Temp Pulse Resp B/P (MAP) Pulse Ox O2 Delivery O2 Flow Rate FiO2 05/01/25 11:45 98.0 71 16 136/72 (93) 97 98.0 05/01/25 11:45 71 16 97 Room Air 05/01/25 11:09 98.0 71 16 136/72 97 98.0 Departure 1 Departure Time of Disposition: 12:02 Impression: Primary Impression: Encounter for wound re-check Disposition: 01 HOME / SELF CARE / HOMELESS Condition: Stable Additional Instructions: F/U PCP IN 2 DAYS RECHECK. IF CONDITION BECOME WORSE, RETURN TO ED [facility]. e-Prescriptions Levofloxacin Hemihydrate (LEVAQUIN 500 MG) 500 Mg Tab 1 TAB PO DAILY, #10 TAB Prov: JUDI PHOENIX 05/01/25 Discharged With: Self, Spouse Critical Care Note Critical Care Time?: No Stability Stability form required: No I personally scribed for JUDI PHOENIX ([email or web address]) on 05/01/25 at 11:51. Electronically submitted by Laurel Vargas ([facility]). JUDI PHOENIX May 01, 2025 11:51
== END 2025-05-01 11:49 | disposition home or self-care (01) ==
LOC: ER 11:06
DX: Z48.00 Encounter for change or removal of nonsurgical wound dressing (principal); E11.9 Type 2 diabetes mellitus without complications; Z79.899 Other long term (current) drug therapy; Z88.5 Allergy status to narcotic agent